=== PATIENT | male | born 1985 | race Hispanic/Latino ===

== ENCOUNTER 2017-09-24 14:22 | Inpatient (IN) | payer BC, OTHER ==
[~2017-09-24] VITALS: Ht 365.8 cm; Wt 216.4 kg
[~2017-09-24 14:22] MED LIST: ASPIRIN81 MG PO; FLAGYL250 MG PO; LEVAQUIN500 MG PO; LISINOPRIL10 MG PO; PANTOPRAZOLE SO40 MG PO; TYLENOL WITH C1 EACH PO; ZOFRAN ODT4 MG SL
[2017-09-24] MEDS ORDERED: SODIUM CHLORIDE 0.9% 1000ML 1,000 ML IV STA (15:20)
[2017-09-24] MEDS ORDERED: ENOXAPARIN SODIUM INJ 100 MG/ML SYR SC STA (15:20)
[2017-09-24] MEDS ORDERED: VANCOMYCIN 1GM/NS 250 ML 250 ML IV STA (15:20)
[2017-09-24] MEDS ORDERED: PANTOPRAZOLE 40 MG 10ML VIAL IV STA (15:20)
[2017-09-24] MEDS ORDERED: PIPER-TAZ 3.375 GM 50 ML IV STA (15:20)
[2017-09-24 15:30] LABS: BASOPHILS # (AUTO) 0.1 (0.0-0.1); BASOPHILS % 0.5 % (0.0-1.0); EOSINOPHILS # (AUTO) 0.3 (0.0-0.4); EOSINOPHILS % 2.8 % (0.0-6.0); HEMATOCRIT 46.7 % (38.2-49.6); HEMOGLOBIN 14.6 g/dL (14.0-18.0); LYMPHOCYTES # (AUTO) 2.3 (1.0-3.2); LYMPHOCYTES % 20.5 % (18.0-39.1); MEAN CORPUSCULAR HEMOGLOBIN 26.6 pg (28-32); MEAN CORPUSCULAR HGB CONC 31.3 g/dL (31-35); MEAN CORPUSCULAR VOLUME 85.2 fL (81-99); MONOCYTES # (AUTO) 1.1 (0.2-0.8); MONOCYTES % 9.8 % (4.4-11.3); NEUTROPHILS # (AUTO) 7.3 (2.1-6.9); NEUTROPHILS % 65.7 % (38.7-80.0); PLATELET COUNT 307 x10e3/uL (140-360); RED BLOOD COUNT 5.48 x10e6/uL (4.3-5.7); RED CELL DISTRIBUTION WIDTH 14.6 % (11.7-14.4)
[2017-09-24] MEDS ORDERED: ONDANSETRON HCL INJ 2 MG/ML VIAL IV PRN (15:30)
[2017-09-24] MEDS ORDERED: DEXTROSE 50% SYRINGE 50 ML IV PRN (15:30)
[2017-09-24] MEDS ORDERED: MORPHINE SULFATE 2 MG/ML SYR IV PRN (15:30)
[2017-09-24 15:34] LABS: INR 1.08; PROTHROMBIN TIME 13.2 seconds (11.9-14.5)
[2017-09-24 15:35] LABS: PARTIAL THROMBOPLASTIN TIME 27.6 seconds (23.8-35.5)
[2017-09-24 15:42] LABS: ALANINE AMINOTRANSFERASE 49 IU/L (0-55); ALBUMIN 3.4 g/dL (3.5-5.0); ALBUMIN/GLOBULIN RATIO 0.9 (0.8-2.0); ALKALINE PHOSPHATASE 64 IU/L (40-150); ANION GAP 15.1 mmol/L (8-16); BLOOD UREA NITROGEN 11 mg/dL (7-26); BUN/CREATININE RATIO 13 (6-25); CALCIUM 9.6 mg/dL (8.4-10.2); CARBON DIOXIDE 29 mmol/L (22-29); CHLORIDE 96 mmol/L (98-107); CREATINE KINASE 140 IU/L (30-200); CREATININE, SERUM 0.83 mg/dL (0.72-1.25); EST GLOMERULAR FILTRATION RATE > 60 ML/MIN (60-); GLUCOSE 90 mg/dL (74-118); LIPASE 24 U/L (8-78); MAGNESIUM 1.7 MG/DL (1.3-2.1); POTASSIUM 4.1 mmol/L (3.5-5.1); SODIUM 136 mmol/L (136-145)
[2017-09-24] MEDS ORDERED: PANTOPRAZOLE 40 MG 10ML VIAL ONE (15:56)
[2017-09-24] MEDS ORDERED: PIPER-TAZ 3.375 GM 50 ML IV SCH (16:00)
[2017-09-24] MEDS ORDERED: FAMOTIDINE 20 MG/2 ML VIAL IV SCH (16:00)
[2017-09-24 16:02] LABS: THYROID STIMULATING HORMONE 1.715 uIU/mL (0.350-4.940)
[2017-09-24] MEDS ORDERED: ENOXAPARIN SODIUM INJ 100 MG/ML SYR SC SCH (16:15)
--- NOTE | 2017-09-24 16:36 | Diagnostic Imaging Report ---
PROCEDURE: A single AP view of the chest. COMPARISON: None available. INDICATIONS: LEG SWELLING FINDINGS: Lines/tubes: None. Lungs: Limited by body habitus and low lung volumes. No definite focal consolidation. Pleura: There is no pleural effusion or pneumothorax. Heart and mediastinum: Enlarged cardiac silhouette, accentuated by low lung volumes. Mildly elevated right hemidiaphragm. Bones: No acute bony abnormality. IMPRESSION: Limited study. No definite focal consolidation. Enlarged cardiac silhouette, accentuated by low lung volumes. Dictated by: Max Stahl M.D. on 09/24/2017 at 16:35 Electronically approved by: Max Stahl M.D. on 09/24/2017 at 16:35
[2017-09-24] MEDS: INSULIN REGULAR, HUMAN 100 UNIT/1 ML 3ML VIAL SQ SCH ×2 (16:55→21:55)
--- OUTSIDE RECORDS SUMMARY | 2017-09-24 17:17 | XMS REPORT ---
Author Author [facility] Address Unknown Phone Unavailable Care Team Providers Care Cashier And Waiter/Waitress Name Role Phone ILEANA ROMANO Unavailable Unavailable Problems This patient has no known problems. Allergies, Adverse Reactions, Alerts This patient has no known allergies or adverse reactions. Medications This patient has no known medications. Results Test Description Test Time Test Comments Text Results Atomic Results Result Comments CHEST SINGLE (PORTABLE) [place] [address] Patient Name: LEWIS ACEVEDO MR #: [id number] : 1985 Age/Sex: 31/M Req #: [id number] Adm Physician: Ordered by: ILEANA ROMANO MD, MD Report #: [id number] Location: ER Room/Bed: Procedure: [id number] DX/CHEST SINGLE (PORTABLE) Exam Date: 09/24/17 Exam Time: 1542 REPORT STATUS: Signed PROCEDURE: A single AP view of the chest. COMPARISON: None available. INDICATIONS: LEG SWELLING FINDINGS: Lines/tubes: None. Lungs: Limited by body habitus and low lung volumes. No definite focal consolidation. Pleura: There is no pleural effusion or pneumothorax. Heart and mediastinum: Enlarged cardiac silhouette, accentuated by low lung volumes. Mildly elevated right hemidiaphragm. Bones: No acute bony abnormality. IMPRESSION: Limited study. No definite focal consolidation. Enlarged cardiac silhouette, accentuated by low lung volumes. Dictated by: Max Henriquez M.D. on 09/24/2017 at 16:35 Electronically approved by: Max Henriquez M.D. on 09/24/2017 at 16:35 Dictated By: MAX HENRIQUEZ MD [id number] Transcribed By: DENISHA on 09/24/17 1635 COPY TO: ILEANA ROMANO
[2017-09-24 17:33] LABS: BILIRUBIN,URINE NEGATIVE (NEGATIVE); CLARITY,URINE CLEAR (CLEAR); COLOR,URINE YELLOW (YELLOW); KETONES,URINE NEGATIVE (NEGATIVE); LEUKOCYTE ESTERASE ,URINE NEGATIVE (NEGATIVE); NITRITE,URINE NEGATIVE (NEGATIVE); PROTEIN,URINE DIPSTICK NEGATIVE (NEGATIVE); URINE UROBILINOGEN 0.2 mg/dL (0.2 - 1)
--- NOTE | 2017-09-24 21:48 | Cardiology Report ---
CUT DICTATION (LENGTH 01:07). DOPPLER SCAN OF THE LOWER EXTREMITY VEINS The lower extremity veins were interrogated using 2+ method. The study is suboptimal in quality with several areas not well visualized, including the distal right femoral vein and the left femoral vein as well as the distal portion of the small veins below the left knee. CONCLUSIONS 1. No definite deep venous thrombosis in the area is well visualized. 2. Technically, suboptimal with both distal femoral veins poorly visualized bilaterally and the left small veins in the popliteal area Job#: [id number] THEODORA
--- NOTE | 2017-09-24 21:54 | Cardiology Report ---
DATE OF STUDY: ECHOCARDIOGRAM M-MODE: Borderline dilated left atrium. Normal left ventricular wall thickness and contractility. Normal mitral and aortic valves. No pericardial effusion. SECTOR SCAN: Suboptimal study, poor image quality. Borderline dilated left atrium. Normal left ventricular contractility. Normal left ventricular wall thickness. No pericardial effusion. Suboptimal study. CARDIAC DOPPLER STUDY WITH COLOR: No significant valvular regurgitation or stenosis. CONCLUSIONS 1. Suboptimal study with very poor image quality. 2. Left ventricular ejection fraction is probably normal, around 60%. 3. Borderline dilated left atrium. Job#: [id number] THEODORA cc:DR ILEANA ROMANO
[2017-09-25] MEDS ORDERED: FAMOTIDINE 10MG/ML 20ML VIAL IV SCH (09:00)
[2017-09-25] MEDS ORDERED: ASPIRIN 81 MG ENTERIC COATED PO SCH (09:00)
[2017-09-25] MEDS ORDERED: VANCOMYCIN 1GM/NS 250 ML 250 ML IV SCH (16:00)
== END 2017-09-24 22:50 | disposition left against medical advice (07) | DRG 603 ==
LOC: ER 14:22 → EDBD 14:22 → ERHOLD 17:16 → MED/SURG3 22:01
PROVIDERS: ADMIT Internal Medicine; ATTEND Internal Medicine
DX: L03.116 Cellulitis of left lower limb (principal); Z72.0 Tobacco use
CPT/HCPCS: 36415; 71045; 80053; 81001; 82550; 82553; 83690; 83735; 83880; 84443; 84484; 85025; 85610; 85730; 87040; 87086; 93005; 93306; 93970; 99284; J1650; J2543; J3370; J7030

== ENCOUNTER 2018-03-10 19:14 | Inpatient (IN) | payer MEDICARE, OTHER ==
[~2018-03-10] VITALS: Ht 180.3 cm; Wt 217.3 kg
[2018-03-10] MEDS ORDERED: ALBUTEROL/IPRATROPIUM 3 ML NEB NEB ONE (20:15)
[2018-03-10] MEDS ORDERED: METHYLPREDNISOLONE SOD SUCC 125 MG/2ML VIAL IV ONE (20:15)
--- NOTE | 2018-03-10 20:57 | Diagnostic Imaging Report ---
EXAMINATION: CXR 1 [facility] INDICATION: \S\[id number] \S\2009 COMPARISON: Chest radiograph 01/25/[address] abdomen and pelvis 01/25/2016 FINDINGS: PA and lateral views TUBES and LINES: None. LUNGS: Low lung volumes. Bilateral interstitial edema. Bibasilar atelectasis. PLEURA: No pleural effusion or pneumothorax. HEART AND MEDIASTINUM: Moderate enlargement of the cardiac silhouette with obscuration of the upper mediastinum. BONES AND SOFT TISSUES: No acute osseous lesion. Soft tissues are unremarkable. UPPER ABDOMEN: No free air under the diaphragm. IMPRESSION: Moderate enlargement of the cardiac silhouette has significantly increased since prior exam and suggestive of cardiomegaly with superimposed pericardial effusion. Correlate with echocardiogram. Signed by: Dr. Neha Pastrana M.D. on 03/10/2018 8:53 PM
[2018-03-10] MEDS ORDERED: FUROSEMIDE40 MG PO (22:02)
[2018-03-10] MEDS ORDERED: LATUDA (22:02)
[2018-03-10] MEDS ORDERED: PROPRANOLOL HCL40 MG PO (22:02)
[2018-03-10] MEDS ORDERED: BUSPIRONE HCL5 MG PO (22:02)
[2018-03-10] MEDS ORDERED: FUROSEMIDE INJ 10 MG/ML 4 ML VIAL IV ONE (22:15)
[2018-03-10] MEDS ORDERED: PIPER-TAZ 3.375 GM 50 ML IV ONE (22:30)
[2018-03-10] MEDS: ALBUTEROL/IPRATROPIUM 3 ML NEB NEB SCH (23:55)
[2018-03-11] VITALS (33 sets, daily range): BP systolic 72–188; BP diastolic 36–117
[2018-03-11 01:15] LABS: CREATINE KINASE 41 IU/L (30-200)
[2018-03-11] MEDS: ALBUTEROL/IPRATROPIUM 3 ML NEB NEB SCH ×6 (02:50→23:02)
[2018-03-11] MEDS ORDERED: SODIUM CHLORIDE 0.9% 250ML 250 ML ONE (02:51)
[2018-03-11 04:59] LABS: BASOPHILS % 0.2 % (0.0-1.0); HEMATOCRIT 43.6 % (38.2-49.6); HEMOGLOBIN 12.5 g/dL (14.0-18.0); LYMPHOCYTES # (AUTO) 0.6 (1.0-3.2); LYMPHOCYTES % 5.6 % (18.0-39.1); MEAN CORPUSCULAR HEMOGLOBIN 25.1 pg (28-32); MEAN CORPUSCULAR HGB CONC 28.7 g/dL (31-35); MEAN CORPUSCULAR VOLUME 87.4 fL (81-99); MONOCYTES # (AUTO) 0.1 (0.2-0.8); MONOCYTES % 0.9 % (4.4-11.3); NEUTROPHILS # (AUTO) 10.3 (2.1-6.9); NEUTROPHILS % 92.4 % (38.7-80.0); PLATELET COUNT 347 x10e3/uL (140-360); RED BLOOD COUNT 4.99 x10e6/uL (4.3-5.7); RED CELL DISTRIBUTION WIDTH 16.2 % (11.7-14.4)
[2018-03-11] MEDS: METHYLPREDNISOLONE SOD SUCC 125 MG/2ML VIAL IV SCH ×3 (05:15→22:14)
[2018-03-11] MEDS: PIPER-TAZ 3.375 GM 50 ML IV SCH ×3 (05:15→22:14)
[2018-03-11 05:26] LABS: CREATINE KINASE MB 0.8 ng/mL (0-5.0)
[2018-03-11 06:36] LABS: ALANINE AMINOTRANSFERASE 49 IU/L (0-55); ALBUMIN 3.2 g/dL (3.5-5.0); ALBUMIN/GLOBULIN RATIO 0.8 (0.8-2.0); ALKALINE PHOSPHATASE 74 IU/L (40-150); ANION GAP 14.5 mmol/L (8-16); BLOOD UREA NITROGEN 13 mg/dL (7-26); BUN/CREATININE RATIO 15 (6-25); CALCIUM 8.9 mg/dL (8.4-10.2); CARBON DIOXIDE 34 mmol/L (22-29); CHLORIDE 98 mmol/L (98-107); CREATININE, SERUM 0.84 mg/dL (0.72-1.25); EST GLOMERULAR FILTRATION RATE > 60 ML/MIN (60-); GLUCOSE 114 mg/dL (74-118); POTASSIUM 4.5 mmol/L (3.5-5.1); SODIUM 142 mmol/L (136-145)
[2018-03-11 07:24] LABS: ANISOCYTOSIS SLIGHT; HYPOCHROMASIA SLIGHT; LYMPHOCYTES % (MANUAL) 4 % (19-48); MONOCYTES % (MANUAL) 2 % (3.4-9.0); NEUTROPHILS % (MANUAL) 93 % (40-74); PROMYELOCYTES % (MANUAL) 1 % (0-0); STOMATOCYTES SLIGHT
[2018-03-11 07:25] LABS: PLATELET ESTIMATE ADEQUATE; PLATELET MORPHOLOGY COMMENT NORMAL; RBC MORPHOLOGY COMMENT NORMAL
[2018-03-11 07:44] LABS: CHOL/HDL RATIO 2.4 (3.9-4.7)
--- NOTE | 2018-03-11 08:09 | History and Physical ---
PRIMARY CARE PHYSICIAN: None CHIEF COMPLAINT: Wheezing and shortness of breath. HISTORY OF PRESENT ILLNESS: This is a 32-year-old man with a history of super morbid obesity and recent pneumonia with acute respiratory failure requiring intubation at [facility] in October, now developing shortness of breath and wheezing for the past 2 weeks. He described the wheezing as a noise in the throat. The patient has had worsening symptoms. Therefore, he went to [facility] urgent care and transferred here for further care. Imaging suggested pericardial effusion on CT imaging. The patient was started on steroids, nebs and antibiotics, and admitted for further evaluation and management. Denies any chest pain. Denies any fever. Denies any recent infection. PAST MEDICAL HISTORY: Pneumonia, acute respiratory failure, ARDS, super morbid obesity, sigmoid colitis, diverticulitis, sepsis, hypertension, history of cigarette use. PAST SURGICAL HISTORY: None. ALLERGIES: PER ELECTRONIC MEDICAL RECORD. FAMILY HISTORY: Family history of diabetes. SOCIAL HISTORY: Patient denies any alcohol, illicits or cigarettes. He has a history of smoking. MEDICATIONS: Per electronic medical record. REVIEW OF SYSTEMS: Denies any dizziness, chest pain, fevers, chills, sweats, nausea, vomiting, diarrhea, headache, chest pain, blurred vision. PHYSICAL EXAMINATION VITAL SIGNS: Have been reviewed. GENERAL: A tired-appearing man resting in bed. HEENT: Anicteric. He has no oral lesions. He has a rash around the bilateral borders of the nasal bridge, which is erythematous and scaly. CARDIOVASCULAR: Normal S1 and S2. LUNGS: He has reduced breath sounds throughout. No wheezing is audible. ABDOMEN: Soft, nontender and nondistended. EXTREMITIES: No edema or calf tenderness. NEUROLOGICAL: Alert and oriented times 3. Moving all extremities. SKIN: Dry. PSYCHIATRIC: Flat affect. LABS: Reviewed. MEDICATIONS: Reviewed. ASSESSMENT: This is a 32-year-old man with: 1. Acute bronchitis. 2. Hypertension. 3. Possible edema of the airway. 4. Super morbid obesity. 5. Seborrheic dermatitis. 6. Pericardial effusion on imaging. 7. History of cigarette use. PLAN 1. Continue with steroids and antibiotics. 2. Follow up cultures. 3. Obtain 2-D echocardiogram to further evaluate possible pericardial effusion. 4. Start loratadine, antihistamine and Singulair at nighttime. 5. Continue neb treatments. 6. Restart home medications for blood pressure control. 7. Continue Lasix use. Currently, on Lasix 40 mg IV b.i.d. 8. Continue Lovenox and PPI. 9. Disposition. Follow up closely and re-evaluate. Job#: [id number] RI
[2018-03-11] MEDS: FUROSEMIDE INJ 10 MG/ML 4 ML VIAL IV SCH ×3 (08:27→20:50)
[2018-03-11] MEDS: LISINOPRIL 10 MG TAB PO SCH (08:28)
[2018-03-11] MEDS: LORATADINE 10 MG TAB PO SCH (08:28)
[2018-03-11] MEDS: PROPRANOLOL HCL 40 MG TAB PO SCH ×2 (08:28→17:00)
[2018-03-11] MEDS: BUSPIRONE HCL 5 MG TAB PO SCH ×2 (08:28→17:00)
[2018-03-11] MEDS ORDERED: HYDROCODONE/APAP 5MG-325MG TAB PO PRN (08:30)
[2018-03-11] MEDS ORDERED: LATUDA 80 MG SCH (09:00)
[2018-03-11] MEDS ORDERED: LATUDA 80 MG PO SCH (09:00)
[2018-03-11] MEDS ORDERED: PANTOPRAZOLE SOD 40 MG TABEC PO SCH (09:00)
[2018-03-11] MEDS: ONDANSETRON HCL 4 MG ORAL DISINTEGRATING TAB SL SCH ×2 (12:17→18:00)
[2018-03-11] MEDS ORDERED: CHLORASEPTIC SPRAY 177 ML BTL MM PRN (12:30)
[2018-03-11 14:17] LABS: CREATINE KINASE MB 1.1 ng/mL (0-5.0)
[2018-03-11] MEDS ORDERED: SUCCINYLCHOLINE CHLORIDE 20 MG/ML 10ML VIAL ONE (17:58)
[2018-03-11] MEDS ORDERED: VECURONIUM BROMIDE FOR INJ 20 MG VIAL ONE (17:58)
[2018-03-11] MEDS ORDERED: ETOMIDATE 2 MG/ML 10 ML INJ IV ONE (17:58)
[2018-03-11] MEDS ORDERED: PROPOFOL IV EMULSION 10MG/ML 100 ML IV PRN (18:00)
[2018-03-11 18:07] LABS: ABG PCO2 118 mmHg (41-51); ABG PO2 90 mmHg (80-105)
[2018-03-11 18:08] LABS: ABG HCO3 46 mmol/L (23-28)
[2018-03-11 18:11] LABS: ABG PH 7.26 (7.31-7.41)
[2018-03-11 18:12] LABS: ABG HCO3 41 mmol/L (23-28); ABG PCO2 92 mmHg (41-51); ABG PO2 80 mmHg (80-105)
--- NOTE | 2018-03-11 18:51 | Diagnostic Imaging Report ---
EXAMINATION: CHEST SINGLE (PORTABLE) INDICATION: \S\check intubation placement \S\[id number] \S\1800 COMPARISON: Chest radiograph 03/10/2018 FINDINGS: PA and lateral views TUBES and LINES: Interval intubation with endotracheal tube tip 4.5 cm above the alannah. LUNGS: Low lung volumes. Bilateral pulmonary edema, increased. Bibasilar atelectasis. PLEURA: No pleural effusion or pneumothorax. HEART AND MEDIASTINUM: Moderate enlargement of the cardiac silhouette with obscuration of the upper mediastinum. BONES AND SOFT TISSUES: No acute osseous lesion. Soft tissues are unremarkable. UPPER ABDOMEN: No free air under the diaphragm. IMPRESSION: 1. New endotracheal tube with tip in adequate position. 2. Worsening bilateral pulmonary edema. Signed by: Dr. Neha Pastrana M.D. on 03/11/2018 6:48 PM
[2018-03-11] MEDS: ENOXAPARIN SOD INJ 40 MG/0.4 ML SYR SC SCH (19:31)
[2018-03-11] MEDS: VANCOMYCIN 1GM/NS 250 ML 250 ML IV SCH ×2 (20:00→21:00)
[2018-03-11] MEDS: SODIUM CHLORIDE 0.9% IV SCH ×2 (20:30→21:00)
[2018-03-11] MEDS: POTASSIUM CHLORIDE IV SCH ×2 (20:30→21:00)
[2018-03-11 21:00] LABS: ABG PH 7.33 (7.31-7.41)
[2018-03-11] MEDS: MONTELUKAST SODIUM 10 MG TAB PO SCH (21:00)
[2018-03-11 21:01] LABS: ABG HCO3 42 mmol/L (23-28); ABG PCO2 79 mmHg (41-51); ABG PO2 67 mmHg (80-105)
[2018-03-11 21:19] LABS: BASOPHILS % 0.1 % (0.0-1.0); HEMATOCRIT 44.9 % (38.2-49.6); HEMOGLOBIN 12.6 g/dL (14.0-18.0); LYMPHOCYTES # (AUTO) 0.7 (1.0-3.2); LYMPHOCYTES % 4.4 % (18.0-39.1); MEAN CORPUSCULAR HEMOGLOBIN 24.9 pg (28-32); MEAN CORPUSCULAR HGB CONC 28.1 g/dL (31-35); MEAN CORPUSCULAR VOLUME 88.7 fL (81-99); MONOCYTES % 6.6 % (4.4-11.3); NEUTROPHILS % 88.1 % (38.7-80.0); PLATELET COUNT 356 x10e3/uL (140-360); RED BLOOD COUNT 5.06 x10e6/uL (4.3-5.7); RED CELL DISTRIBUTION WIDTH 16.2 % (11.7-14.4)
[2018-03-11 21:38] LABS: ALANINE AMINOTRANSFERASE 64 IU/L (0-55); ALBUMIN 3.2 g/dL (3.5-5.0); ALKALINE PHOSPHATASE 68 IU/L (40-150); ANION GAP 14.7 mmol/L (8-16); BILIRUBIN,DIRECT 0.2 mg/dL (0.0-0.5); BLOOD UREA NITROGEN 16 mg/dL (7-26); BUN/CREATININE RATIO 15 (6-25); CALCIUM 9.4 mg/dL (8.4-10.2); CARBON DIOXIDE 36 mmol/L (22-29); CHLORIDE 95 mmol/L (98-107); CREATININE, SERUM 1.05 mg/dL (0.72-1.25); EST GLOMERULAR FILTRATION RATE > 60 ML/MIN (60-); GLUCOSE 134 mg/dL (74-118); MAGNESIUM 1.8 MG/DL (1.3-2.1); POTASSIUM 4.7 mmol/L (3.5-5.1); SODIUM 141 mmol/L (136-145)
[2018-03-11] MEDS: MIDAZOLAM HCL 25 MG in SODIUM CHLORIDE 0.9% 50ML 45 ML IV PRN (22:00)
[2018-03-11] MEDS: [UNRECOGNIZED DRUG - OTHER] PO SCH (22:03)
[2018-03-11] MEDS: LATUDA 80 MG PO SCH (22:03)
--- NOTE | 2018-03-11 22:16 | Consultation ---
DATE OF CONSULTATION: March 11, 2018 HISTORY OF PRESENT ILLNESS: The patient is a 32-year-old male consulted after the patient required intubation and was started with ventilation. He was admitted due to the presence of wheezing, increasing shortness of breath, and probably some cough. The patient has history of previous intubation in October of this year, and he needed to be intubated for more than one month, according to the mother. He has history of bronchial asthma as a child. He was diagnosed with having paranoid schizophrenia. He has history of smoking one to one and a half pack a day for 7 years. No smoking since October of this year. When he was intubated in October, he had a sacral wound with improvement, but some part of the wound remained. Also, in October he had one episode of arresting with good recovery after CPR was given. By then, in October 2016 he had pneumonia. As reported, he needed to be intubated for 35 days, according to the mother. He has history of hypertension, sleep apnea. He has super morbid obesity. The mother also described a facial rash present for the last month. He has history of hypertension, diverticulitis. He had sepsis. No previous surgeries. PHYSICAL EXAMINATION GENERAL: The patient has been sedated with versed drip. He was given Diprivan but the blood pressure went down. VITAL SIGNS: He is afebrile. Pulse 111. Blood pressure 188/114. The current blood pressure is 105/60. Pulse 88. Oxygen saturation 93%. He is assist control of 20. Tidal volume 520. PEEP of 5. FIO2 of 100. HEENT: NG tube, oral intubation. There is acne on the face. NECK: Short and thick. LUNGS: There are crackles in both lungs. HEART: No heart murmurs. ABDOMEN: Prominent. EXTREMITIES: No pedal edema. The chest x-ray disclosed bilateral pneumonia. In the terms of the labs, the WBC 11.16. The rest of the chemistry and CBC were unremarkable. IMPRESSION 1. Acute hypoxemic respiratory failure. 2. Bilateral pneumonia, which is very clear and severe on the last chest x-ray done. 3. Hypertension. 4. Super morbid obesity. 5. Seborrheic dermatitis of the face. 6. History of smoking. RECOMMENDATIONS: To continue with the current ventilatory settings and perform ABGs. The patient was started with Zosyn 3.375 q.8 h. IV. Will give him vancomycin 1 gram q.12 h. Check trough level after the third dose. Also, we are recommending to start with normal saline with potassium chloride 15 mEq in 1000 of fluids at a rate of 70 mL per hour. The patient was started with Lovenox 40 a day subcutaneously. He is getting Protonix 40 mg IV daily. He is on versed drip. We are planning ABGs, CBC, Chem 7, magnesium and liver profile to be done in a short time, and for tomorrow we are planning to repeat chest x-ray, ABGs, CBC, Chem 7, magnesium and liver profile again. To check the patient and to get in contact with the family, to watch the film by myself and to decide about the appropriate treatment and to take decision about the ventilation. It took me about one hour altogether. Job#: [id number] GH MTDD
[2018-03-12] VITALS (80 sets, daily range): BP systolic 77–143; BP diastolic 34–92
[2018-03-12] MEDS: ONDANSETRON HCL 4 MG ORAL DISINTEGRATING TAB SL SCH ×4 (00:11→17:20)
[2018-03-12] MEDS: MIDAZOLAM HCL 25 MG in SODIUM CHLORIDE 0.9% 50ML 45 ML IV PRN ×4 (01:00→15:14)
[2018-03-12] MEDS: ALBUTEROL/IPRATROPIUM 3 ML NEB NEB SCH ×6 (02:30→22:40)
[2018-03-12 04:44] LABS: BASOPHILS % 0.1 % (0.0-1.0); HEMATOCRIT 41.8 % (38.2-49.6); HEMOGLOBIN 11.8 g/dL (14.0-18.0); LYMPHOCYTES # (AUTO) 0.7 (1.0-3.2); LYMPHOCYTES % 3.9 % (18.0-39.1); MEAN CORPUSCULAR HEMOGLOBIN 24.5 pg (28-32); MEAN CORPUSCULAR HGB CONC 28.2 g/dL (31-35); MEAN CORPUSCULAR VOLUME 86.7 fL (81-99); MONOCYTES # (AUTO) 0.9 (0.2-0.8); MONOCYTES % 5.4 % (4.4-11.3); NEUTROPHILS % 89.9 % (38.7-80.0); PLATELET COUNT 351 x10e3/uL (140-360); RED BLOOD COUNT 4.82 x10e6/uL (4.3-5.7); RED CELL DISTRIBUTION WIDTH 16.6 % (11.7-14.4)
[2018-03-12 05:03] LABS: ALBUMIN 3.1 g/dL (3.5-5.0); ANION GAP 16.8 mmol/L (8-16); BILIRUBIN,DIRECT 0.2 mg/dL (0.0-0.5); CALCIUM 9.2 mg/dL (8.4-10.2); CREATININE, SERUM 1.51 mg/dL (0.72-1.25); POTASSIUM 4.8 mmol/L (3.5-5.1)
[2018-03-12] MEDS: PIPER-TAZ 3.375 GM 50 ML IV SCH ×3 (05:54→23:29)
[2018-03-12] MEDS: METHYLPREDNISOLONE SOD SUCC 125 MG/2ML VIAL IV SCH ×3 (05:54→23:29)
[2018-03-12 06:53] LABS: ABG PH 7.39 (7.31-7.41)
[2018-03-12 06:54] LABS: ABG HCO3 40 mmol/L (23-28); ABG PCO2 66 mmHg (41-51); ABG PO2 78 mmHg (80-105)
[2018-03-12 07:00] LABS: LYMPHOCYTES % (MANUAL) 4 % (19-48); MONOCYTES % (MANUAL) 8 % (3.4-9.0); NEUTROPHILS % (MANUAL) 88 % (40-74); PLATELET ESTIMATE ADEQUATE; PLATELET MORPHOLOGY COMMENT NORMAL; RBC MORPHOLOGY COMMENT NORMAL
--- NOTE | 2018-03-12 08:18 | Progress Note ---
DATE: March 12, 2018 ADDENDUM: Critical care time: More than 35 minutes. Job#: [id number] EV
[2018-03-12] MEDS: LISINOPRIL 10 MG TAB PO SCH (09:00)
[2018-03-12] MEDS: [UNRECOGNIZED DRUG - OTHER] PO SCH (09:00)
[2018-03-12] MEDS: PROPRANOLOL HCL 40 MG TAB PO SCH ×2 (09:00→17:00)
[2018-03-12] MEDS: LATUDA 80 MG PO SCH (09:00)
[2018-03-12] MEDS: BUSPIRONE HCL 5 MG TAB PO SCH ×2 (09:00→17:00)
[2018-03-12] MEDS: LORATADINE 10 MG TAB PO SCH (09:00)
[2018-03-12] MEDS: VANCOMYCIN 1GM/NS 250 ML 250 ML IV SCH ×2 (09:02→20:00)
[2018-03-12] MEDS: PANTOPRAZOLE 40 MG 10ML VIAL IV SCH (09:02)
[2018-03-12] MEDS: FUROSEMIDE INJ 10 MG/ML 4 ML VIAL IV SCH (09:02)
[2018-03-12] MEDS: POTASSIUM CHLORIDE IV SCH ×2 (09:56→23:29)
[2018-03-12] MEDS: SODIUM CHLORIDE 0.9% IV SCH ×2 (09:56→23:29)
--- NOTE | 2018-03-12 10:24 | Diagnostic Imaging Report ---
EXAMINATION: CHEST SINGLE (PORTABLE) INDICATION: \S\Resp Failure \S\[id number] \S\0530 COMPARISON: Chest radiograph 03/11/2018 FINDINGS: Single portable AP view of the chest. The visualized bones and soft tissues, cardiac silhouette lungs, pleura appear unchanged. IMPRESSION: 1. Lines/tubes: * Endotracheal tube has been mildly retracted with tip now in the upper trachea. Recommend advancement of at least 2 cm. * Interval placement of NG/OG tube which appears to be below the diaphragm. Tip is difficult to visualize. 2. Unchanged low lung volumes, bilateral pulmonary edema, and bibasilar atelectasis. Signed by: Dr. Neha Pastrana M.D. on 03/12/2018 10:20 AM
--- NOTE | 2018-03-12 11:46 | Diagnostic Imaging Report ---
EXAMINATION: CHEST XRAY LINE PLACEMENT INDICATION: \S\check picc line placement \S\[id number] \S\1105 COMPARISON: Chest radiograph at 03/12/2018 FINDINGS: AP view TUBES and LINES: Interval placement of a right PICC. Tip is not well visualized but appears to overlying the mid SVC. Endotracheal tube with tip in the upper trachea, unchanged. Infradiaphragmatic NG/OG tube, unchanged. LUNGS: Low lung volumes. Bilateral pulmonary edema. Bibasilar atelectasis. PLEURA: No pleural effusion or pneumothorax. HEART AND MEDIASTINUM: The cardiomediastinal silhouette is unremarkable. BONES AND SOFT TISSUES: No acute osseous lesion. Soft tissues are unremarkable. UPPER ABDOMEN: No free air under the diaphragm. IMPRESSION: New right PICC. The tip appears to overlying the mid SVC. Consider repeat chest radiograph with better x-ray penetration. No pneumothorax. Signed by: Dr. Neha Pastrana M.D. on 03/12/2018 11:43 AM
--- NOTE | 2018-03-12 14:25 | Diagnostic Imaging Report ---
EXAM: Abdomen 1 View INDICATION: \S\confirm NGT placement \S\[id number] \S\1300 COMPARISON: CT abdomen and pelvis 01/25/2016 and chest radiograph 03/12/2018 FINDINGS: TUBES AND LINES: Distal NG/OG tube within the gastric body. Oral contrast within the stomach. No contrast extravasation. Mild to moderate of stool in the colon. No dilated loops of small bowel. No renal calculi. No abnormal soft tissue masses. No degenerative changes in the lumbar spine and pelvis. IMPRESSION: NG OG tube with tip within the gastric body. Signed by: Dr. Neha Pastrana M.D. on 03/12/2018 2:21 PM
[2018-03-12] MEDS: FENTANYL CITRATE INJ 2,000 MCG in SODIUM CHLORIDE 0.9% 250ML 210 ML IV PRN ×2 (14:27→21:00)
[2018-03-12 16:35] LABS: BASOPHILS % 0.1 % (0.0-1.0); HEMATOCRIT 40.6 % (38.2-49.6); HEMOGLOBIN 11.7 g/dL (14.0-18.0); LYMPHOCYTES # (AUTO) 0.7 (1.0-3.2); LYMPHOCYTES % 4.2 % (18.0-39.1); MEAN CORPUSCULAR HEMOGLOBIN 24.6 pg (28-32); MEAN CORPUSCULAR HGB CONC 28.8 g/dL (31-35); MEAN CORPUSCULAR VOLUME 85.3 fL (81-99); MONOCYTES # (AUTO) 1.1 (0.2-0.8); MONOCYTES % 6.7 % (4.4-11.3); NEUTROPHILS # (AUTO) 14.9 (2.1-6.9); NEUTROPHILS % 88.4 % (38.7-80.0); PLATELET COUNT 325 x10e3/uL (140-360); RED BLOOD COUNT 4.76 x10e6/uL (4.3-5.7); RED CELL DISTRIBUTION WIDTH 16.9 % (11.7-14.4)
[2018-03-12 16:52] LABS: ANION GAP 13.1 mmol/L (8-16); BLOOD UREA NITROGEN 31 mg/dL (7-26); BUN/CREATININE RATIO 27 (6-25); CALCIUM 9.2 mg/dL (8.4-10.2); CARBON DIOXIDE 34 mmol/L (22-29); CHLORIDE 99 mmol/L (98-107); CREATININE, SERUM 1.16 mg/dL (0.72-1.25); EST GLOMERULAR FILTRATION RATE > 60 ML/MIN (60-); GLUCOSE 118 mg/dL (74-118); POTASSIUM 4.1 mmol/L (3.5-5.1); SODIUM 142 mmol/L (136-145)
[2018-03-12] MEDS: ENOXAPARIN SOD INJ 40 MG/0.4 ML SYR SC SCH (17:25)
[2018-03-12] MEDS: DEXMEDETOMIDINE HCL 200 MCG in SODIUM CHLORIDE 0.9% 50ML 48 ML IV PRN ×2 (20:28→23:00)
[2018-03-12] MEDS: MONTELUKAST SODIUM 10 MG TAB PO SCH (20:43)
--- NOTE | 2018-03-12 22:15 | Progress Note ---
DATE: LUNG PROGRESS NOTE Patient is a 32-year-old man, who I saw him after being intubated and found to have a pneumonia and signs compatible with CHF. Today, he seems to be stable, probably slight improvement. A PICC line was placed and in the x-ray, it seems to be in the superior vena cava area. OBJECTIVE VITAL SIGNS: He has been afebrile. Pulse 81. Oxygen saturation 92%. Blood pressure 106/55. He is on assist control of 20, FiO2 of 100%, PEEP of 12, tidal volume 520. HEENT: NG tube, oral intubation. NECK: Short and thick. LUNGS: He has distant breath sounds. HEART: No murmurs. ABDOMEN: Very obese. EXTREMITIES: Pedal edema. LABS: In terms of the chest x-ray, there was 1 done in the senior information developer, which was looking better especially with the right lung comparison with the x-ray done yesterday. The one done after PICC line was placed, was looking similar to yesterday's films. The WBC 16.72, BUN 26, creatinine 1.51, sugar 130, albumin 3.1. Patient is currently on Versed 10 mg per hour. We are planning to continue with the vancomycin. He is on vancomycin 1 g q.12 and he is Zosyn 3.375 q.8. Besides that, he is on Versed drip. He is on normal saline with potassium. We are recommending Lasix to be given 40 q.24. To add fentanyl to the Versed for sedation and control of pain. To continue with the same ventilatory settings and we are requesting for tomorrow ABGs, chest x-ray, CBC, chemistry, and magnesium. Job#: [id number] CQ
[2018-03-13] VITALS (37 sets, daily range): BP systolic 105–152; BP diastolic 63–108
[2018-03-13] MEDS: DEXMEDETOMIDINE HCL 200 MCG in SODIUM CHLORIDE 0.9% 50ML 48 ML IV PRN ×2 (01:00→03:14)
[2018-03-13] MEDS: ALBUTEROL/IPRATROPIUM 3 ML NEB NEB SCH ×6 (02:45→22:57)
[2018-03-13] MEDS: FENTANYL CITRATE INJ 2,000 MCG in SODIUM CHLORIDE 0.9% 250ML 210 ML IV PRN (03:16)
--- NOTE | 2018-03-13 03:54 | Diagnostic Imaging Report ---
EXAM: CHEST SINGLE (PORTABLE), AP 1 view INDICATION: Possible pulled endotracheal tube COMPARISON: AP view of the chest March 12, 2018 FINDINGS: LINES/TUBES: The endotracheal tube has been pulled and is 9 cm above the alannah. The nasal/orogastric tube courses below the diaphragm out of field of view. Tip of right approach PICC not well-visualized on this exam. LUNGS: Likely bilateral pulmonary edema and bibasilar atelectasis. PLEURA: No effusions or pneumothorax. HEART AND MEDIASTINUM: Stable enlargement. BONES AND SOFT TISSUES: No acute findings. IMPRESSION: The endotracheal tube has been retracted and is 9 cm above the alannah. Signed by: Dr. Margy Mcqueen M.D. on 03/13/2018 3:51 AM
[2018-03-13 04:54] LABS: BASOPHILS % 0.1 % (0.0-1.0); HEMOGLOBIN 11.5 g/dL (14.0-18.0); LYMPHOCYTES # (AUTO) 0.5 (1.0-3.2); LYMPHOCYTES % 3.9 % (18.0-39.1); MEAN CORPUSCULAR HEMOGLOBIN 24.5 pg (28-32); MEAN CORPUSCULAR HGB CONC 28.8 g/dL (31-35); MEAN CORPUSCULAR VOLUME 85.3 fL (81-99); MONOCYTES # (AUTO) 0.6 (0.2-0.8); MONOCYTES % 4.6 % (4.4-11.3); NEUTROPHILS # (AUTO) 11.8 (2.1-6.9); NEUTROPHILS % 90.9 % (38.7-80.0); PLATELET COUNT 306 x10e3/uL (140-360); RED BLOOD COUNT 4.69 x10e6/uL (4.3-5.7); RED CELL DISTRIBUTION WIDTH 16.8 % (11.7-14.4)
[2018-03-13] MEDS: ONDANSETRON HCL 4 MG ORAL DISINTEGRATING TAB SL SCH ×4 (05:08→18:00)
[2018-03-13] MEDS: PIPER-TAZ 3.375 GM 50 ML IV SCH ×2 (05:08→14:29)
[2018-03-13] MEDS: METHYLPREDNISOLONE SOD SUCC 125 MG/2ML VIAL IV SCH ×3 (05:08→20:26)
[2018-03-13 05:40] LABS: BLOOD UREA NITROGEN 30 mg/dL (7-26); BUN/CREATININE RATIO 35 (6-25); CALCIUM 8.3 mg/dL (8.4-10.2); CARBON DIOXIDE 30 mmol/L (22-29); CHLORIDE 103 mmol/L (98-107); CREATININE, SERUM 0.85 mg/dL (0.72-1.25); EST GLOMERULAR FILTRATION RATE > 60 ML/MIN (60-); GLUCOSE 121 mg/dL (74-118); MAGNESIUM 1.8 MG/DL (1.3-2.1); SODIUM 143 mmol/L (136-145)
[2018-03-13 07:53] LABS: LYMPHOCYTES % (MANUAL) 7 % (19-48); MONOCYTES % (MANUAL) 7 % (3.4-9.0); NEUTROPHILS % (MANUAL) 86 % (40-74); PLATELET ESTIMATE ADEQUATE; PLATELET MORPHOLOGY COMMENT NORMAL; RBC MORPHOLOGY COMMENT NORMAL
[2018-03-13] MEDS: FUROSEMIDE INJ 10 MG/ML 4 ML VIAL IV SCH (08:42)
[2018-03-13] MEDS: PROPRANOLOL HCL 40 MG TAB PO SCH ×2 (08:42→18:36)
[2018-03-13] MEDS: LORATADINE 10 MG TAB PO SCH (08:42)
[2018-03-13] MEDS: BUSPIRONE HCL 5 MG TAB PO SCH ×2 (08:42→18:35)
[2018-03-13] MEDS: PANTOPRAZOLE 40 MG 10ML VIAL IV SCH (08:42)
[2018-03-13] MEDS: LATUDA 80 MG PO SCH (08:42)
[2018-03-13] MEDS: [UNRECOGNIZED DRUG - OTHER] PO SCH (08:42)
[2018-03-13] MEDS: LISINOPRIL 10 MG TAB PO SCH (08:43)
[2018-03-13] MEDS: VANCOMYCIN 1GM/NS 250 ML 250 ML IV SCH ×2 (09:30→20:24)
[2018-03-13 09:33] LABS: ABG PCO2 62 mmHg (41-51); ABG PH 7.38 (7.31-7.41); ABG PO2 52 mmHg (80-105)
[2018-03-13 09:34] LABS: ABG HCO3 37 mmol/L (23-28)
--- NOTE | 2018-03-13 10:41 | Diagnostic Imaging Report ---
EXAM: CHEST SINGLE (PORTABLE), AP 1 view INDICATION: Endotracheal tube adjustment COMPARISON: Chest radiograph 03/13/2018 1:35 AM FINDINGS: LINES/TUBES: The endotracheal tube has been advanced with tip now 4.9 cm above the alannah in the upper trachea. The nasal/orogastric tube courses below the diaphragm out of field of view. Tip of right approach PICC not well-visualized on this exam. LUNGS: Low lung volumes. Likely bilateral pulmonary edema and bibasilar atelectasis, unchanged. PLEURA: No effusions or pneumothorax. HEART AND MEDIASTINUM: Stable enlargement. BONES AND SOFT TISSUES: No acute findings. IMPRESSION: The endotracheal tube has been advanced, tip now 4.9 cm above the alannah. Persistent bilateral pulmonary edema. Signed by: Dr. Neha Pastrana M.D. on 03/13/2018 10:37 AM
[2018-03-13] MEDS ORDERED: ZIPRASIDONE 20 MG VIAL IM ONE (11:03)
[2018-03-13] MEDS ORDERED: LORAZEPAM INJ 2 MG/ML VIAL ONE ×2 (11:03→13:01)
[2018-03-13] MEDS: ZIPRASIDONE 20 MG VIAL IM PRN ×2 (11:05→17:45)
[2018-03-13] MEDS: LORAZEPAM INJ 2 MG/ML VIAL IV SCH ×3 (11:05→22:00)
--- NOTE | 2018-03-13 12:45 | Progress Note ---
DATE: PULMONARY PROGRESS NOTE SUBJECTIVE: Patient is a 32-year-old male who when I saw him was doing fine while ventilated. Actually he was on a CPAP, and the weaning parameters that were done disclosed a NIF of minus 30 and RSBI of 86. The oxygen saturation was 100%. So, we decided to extubate the patient, and the patient after being extubated became very agitated and combative and talking about leaving AMA. So, we needed to give him Ativan 2 mg IV and Geodon 20 IM, and this kept him more cooperative. Patient seems to improve. The chest x-ray disclosed significant improvement of the lungs. OBJECTIVE VITAL SIGNS: Pulse 61, oxygen saturation 96, this after extubation, blood pressure 105/68, afebrile. He was on BiPAP of 20/6, FIO2 of 100%, and respiratory rate of 20. HEENT: NG tube. NECK: Thick and short. LUNGS: Some crackles. HEART: No heart murmurs. ABDOMEN: Prominent. EXTREMITIES: Minimal pedal edema. In terms of the lab: WBC 12.96, rest of the CBC unremarkable. The potassium was 5, the BUN 30, the rest of the chemistry besides glucose of 121 was unremarkable. IMPRESSION 1. Acute respiratory failure. 2. Bilateral pneumonia. 3. Congestive heart failure. 4. Most likely morbid obesity. 5. History of smoking. RECOMMENDATION: To continue with the same settings of BiPAP. Will repeat the ABGs in 1 hour. The last one before the extubation disclosed pH of 7.38, pCO2 of 62 and pO2 of 52. We are planning to give him also Ativan 2 mg q.6 h., and Dagoberto was first given 20, will continue with 10 mg q.6 p.r.n. Will give him clear liquids, and in terms of the rest of the medication that he is getting including antibiotics and Lasix, will continue with that the same way. ANI CENTENO MD Job#: [id number] EV MTDD
[2018-03-13] MEDS: SODIUM CHLORIDE 0.9% 1000ML 1,000 ML IV SCH (13:00)
[2018-03-13 13:12] LABS: ABG HCO3 36 mmol/L (23-28); ABG PCO2 63 mmHg (41-51); ABG PH 7.36 (7.31-7.41); ABG PO2 70 mmHg (80-105)
[2018-03-13] MEDS ORDERED: LORAZEPAM INJ 2 MG/ML VIAL IV ONE (13:30)
--- NOTE | 2018-03-13 15:12 | Progress Note ---
DATE: March 13, 2018 TIME: 12:30 p.m. SUBJECTIVE: Overnight, the patient extubated this a.m. and is currently on BiPAP. Continues with agitation episodes. REVIEW OF SYSTEMS: Patient does verbalize agitation. However, denies shortness of breath, chest pain, dizziness, fever, chills, sweats, nausea, vomiting, diarrhea. Denies headache or blurry vision. OBJECTIVE VITAL SIGNS: T 98.1, P 56, respiratory rate 20, BP 136/87, SpO2 96%. On BiPAP, blood gas was reviewed. GENERAL: This is an obese, agitated, young male resting supine in bed with head of bed elevated approximately 35 degrees. HEENT: Normocephalic. Erythematous and scaly exudate noted of bilateral borders of nasal bridge. BiPAP mask in place. CV: S1 and S2 distant without extra cardiac sounds appreciated. Sinus aakash noted on telemetry/bedside monitor. LUNGS: Reduced breath sounds throughout with scattered crackles and expiratory wheezes. The patient unable to produce productive cough. ABDOMEN: Soft, protuberant and nontender. EXTREMITIES: Without edema or calf tenderness. NEURO: The patient is A and O times 2. Moves all extremities. SKIN: Dry. PSYCHIATRIC: The patient is agitated with labile effect. Significant difficulty redirecting during conversation. Poor recall. LABS: WBC this a.m. is 12.96, H and H is 11.5 and 40 respectively. Platelet count is 306,000. Sodium 143, potassium 5, chloride 103, CO2 30, gap 15, BUN is 30, creatinine 0.85, glucose 121. Vanc trough therapeutic at 9.1. MEDICATIONS 1. DuoNeb 3 mL q.4 h. nebulizer. 2. IV q.12 h. vanc. 3. Lasix 40 mg IV daily. 4. Protonix 40 mg IV daily. 5. Home med of Latuda. 6. Loratadine 10 mg p.o. daily. 7. Buspar 5 mg p.o. b.i.d. 8. Zosyn q.8 h. IV. 9. Solu-Medrol 60 mg q.8 h. 10. IV p.r.n. sedation. 11. Singulair 10 mg p.o. at bedtime. 12. Lovenox 40 mg subcutaneous daily at 1700. 13. [place] 5 mg q.4 h. p.r.n. 14. NS at 60 mL an hour. 15. Geodon p.r.n. 16. Ativan 2 mg q.8 h. IV scheduled. 17. Chloraseptic q.4 h. p.r.n. 18. Ambien 10 mg p.r.n. at night. 19. Saline flush p.r.n. as needed. ASSESSMENT AND PLAN: This is a 32-year-old man with: 1. Acute bronchitis: Continue steroids and antibiotics. 2. Hypertension, controlled. 3. Possible edema of the airway: The patient was extubated this a.m. BiPAP trial piloted by pulmonology services. 4. Super morbid obesity: Continue neb treatments, home medications and diuresis. 5. Seborrheic dermatitis: Currently, with BiPAP on face. Treat when available. 6. Pericardial effusion per imaging: Lasix. 7. History of cigarette use. 8. Prophylaxis: Lovenox and proton pump inhibitor. 9. Disposition: Continue BiPAP trial. Obtain psych consult as discussion with RN, mother and grandmother at bedside. Family reports the patient with increasing agitation at home prior to this hospitalization. Correlating with RN discussion, increased agitation and aggression of short staff following extubation and inability to provide adequate sedation during ventilation. Continue treatment as above. DICTATED BY LUPE JUNIOR NP Job#: [id number] JOSE
[2018-03-13] MEDS: ENOXAPARIN SOD INJ 40 MG/0.4 ML SYR SC SCH (18:36)
[2018-03-13] MEDS ORDERED: FUROSEMIDE INJ 10 MG/ML 4 ML VIAL IV ONE (20:00)
[2018-03-13] MEDS: MONTELUKAST SODIUM 10 MG TAB PO SCH (20:24)
[2018-03-14] MEDS: ZIPRASIDONE 20 MG VIAL IM PRN ×3 (00:20→19:50)
[2018-03-14] MEDS: ZOLPIDEM TARTRATE 10 MG TAB PO PRN ×2 (00:20→21:14)
[2018-03-14] MEDS: SODIUM CHLORIDE FLUSH 10 ML SYR INJ PRN (00:20)
[2018-03-14] MEDS: ONDANSETRON HCL 4 MG ORAL DISINTEGRATING TAB SL SCH ×5 (00:20→23:22)
[2018-03-14] MEDS: PIPER-TAZ 3.375 GM 50 ML IV SCH ×4 (00:20→21:54)
[2018-03-14] MEDS: ALBUTEROL/IPRATROPIUM 3 ML NEB NEB SCH ×6 (03:00→23:40)
[2018-03-14 03:03] VITALS: BP 107/62
[2018-03-14 04:54] LABS: BASOPHILS % 0.1 % (0.0-1.0); HEMATOCRIT 40.7 % (38.2-49.6); HEMOGLOBIN 11.8 g/dL (14.0-18.0); LYMPHOCYTES # (AUTO) 0.7 (1.0-3.2); LYMPHOCYTES % 5.3 % (18.0-39.1); MEAN CORPUSCULAR HEMOGLOBIN 24.6 pg (28-32); MEAN CORPUSCULAR VOLUME 84.8 fL (81-99); MONOCYTES # (AUTO) 1.9 (0.2-0.8); MONOCYTES % 13.8 % (4.4-11.3); NEUTROPHILS # (AUTO) 10.8 (2.1-6.9); NEUTROPHILS % 80.1 % (38.7-80.0); PLATELET COUNT 319 x10e3/uL (140-360); RED CELL DISTRIBUTION WIDTH 16.5 % (11.7-14.4)
[2018-03-14 05:22] LABS: ALANINE AMINOTRANSFERASE 35 IU/L (0-55); ALBUMIN 2.3 g/dL (3.5-5.0); ALBUMIN/GLOBULIN RATIO 0.9 (0.8-2.0); ALKALINE PHOSPHATASE 49 IU/L (40-150); ANION GAP 10.5 mmol/L (8-16); BLOOD UREA NITROGEN 23 mg/dL (7-26); BUN/CREATININE RATIO 32 (6-25); CALCIUM 7.3 mg/dL (8.4-10.2); CARBON DIOXIDE 32 mmol/L (22-29); CHLORIDE 103 mmol/L (98-107); CREATININE, SERUM 0.72 mg/dL (0.72-1.25); EST GLOMERULAR FILTRATION RATE > 60 ML/MIN (60-); GLUCOSE 95 mg/dL (74-118); SODIUM 142 mmol/L (136-145)
[2018-03-14 05:24] LABS: POTASSIUM 3.5 mmol/L (3.5-5.1)
[2018-03-14] MEDS: METHYLPREDNISOLONE SOD SUCC 125 MG/2ML VIAL IV SCH ×3 (06:03→21:54)
[2018-03-14] MEDS ORDERED: PROMETHAZINE 12.5MG/ NACL 0.9% 12.5 MG/50 ML BAG IV PRN (07:30)
--- NOTE | 2018-03-14 08:31 | Diagnostic Imaging Report ---
EXAMINATION: CHEST SINGLE (PORTABLE) INDICATION: \S\post extubation \S\[id number] \S\0545 COMPARISON: Chest radiograph 9 02/10/2018 FINDINGS: AP view TUBES and LINES: The endotracheal and NG/NG tube have been removed. Right PICC. The tip appears to overlying the high SVC. LUNGS: Lungs are well inflated. Bilateral pulmonary edema, mildly decreased. Bibasilar atelectasis, right greater than left, unchanged. PLEURA: Possible trace left pleural effusion. No pneumothorax. HEART AND MEDIASTINUM: Moderate enlargement of the cardiac silhouette remains stable. BONES AND SOFT TISSUES: No acute osseous lesion. Soft tissues are unremarkable. UPPER ABDOMEN: No free air under the diaphragm. IMPRESSION: Interval extubation. Mildly improved pulmonary edema. Stable bibasilar atelectasis, right greater than left. Signed by: Dr. Neha Pastrana M.D. on 03/14/2018 8:28 AM
[2018-03-14] MEDS: VANCOMYCIN 1GM/NS 250 ML 250 ML IV SCH ×3 (08:45→20:06)
[2018-03-14 08:47] LABS: ANISOCYTOSIS SLIG; HOWELL-JOLLY BODIES FEW; HYPOCHROMASIA SLIGHT; LYMPHOCYTES % (MANUAL) 3 % (19-48); MONOCYTES % (MANUAL) 11 % (3.4-9.0); NEUTROPHILS % (MANUAL) 86 % (40-74); POIKILOCYTOSIS SLIG
[2018-03-14 08:48] LABS: PLATELET ESTIMATE ADEQUATE; PLATELET MORPHOLOGY COMMENT NORMAL; RBC MORPHOLOGY COMMENT NORMAL
[2018-03-14] MEDS: FUROSEMIDE INJ 10 MG/ML 4 ML VIAL IV SCH (09:26)
[2018-03-14] MEDS: SODIUM CHLORIDE 0.9% 1000ML 1,000 ML IV SCH ×2 (09:26→20:50)
[2018-03-14] MEDS: LORATADINE 10 MG TAB PO SCH (09:27)
[2018-03-14] MEDS: LATUDA 80 MG PO SCH (09:27)
[2018-03-14] MEDS: BUSPIRONE HCL 5 MG TAB PO SCH ×2 (09:27→17:37)
[2018-03-14] MEDS: [UNRECOGNIZED DRUG - OTHER] PO SCH (09:27)
[2018-03-14] MEDS: LISINOPRIL 10 MG TAB PO SCH (09:27)
[2018-03-14] MEDS: PANTOPRAZOLE 40 MG 10ML VIAL IV SCH (09:27)
[2018-03-14] MEDS: PROPRANOLOL HCL 40 MG TAB PO SCH ×2 (09:28→17:37)
[2018-03-14 09:43] LABS: ABG HCO3 39 mmol/L (23-28); ABG PCO2 68 mmHg (41-51); ABG PH 7.37 (7.31-7.41); ABG PO2 66 mmHg (80-105)
[2018-03-14 11:52] VITALS: BP 153/81
[2018-03-14] MEDS: LORAZEPAM INJ 2 MG/ML VIAL IV SCH (11:56)
--- NOTE | 2018-03-14 13:00 | Progress Note ---
DATE: March 14, 2018 PULMONARY PROGRESS NOTE SUBJECTIVE: Reporting the progress note of the lung consultation. Patient has had episodes of vomiting. He has been given oral feedings, especially by his mother, and he has been also off and on agitated and combative. Currently he is sleeping and seems to be fine, very relaxed. OBJECTIVE VITAL SIGNS: In terms of vitals, blood pressure 153/81, pulse 79, oxygen saturation 96, afebrile. He is on BiPAP of 12/6. Respiratory rate 14. FIO2 60%. HEENT: He is atraumatic. NECK: Thick and short. LUNGS: Some rhonchi. HEART: No murmurs. ABDOMEN: Prominent. EXTREMITIES: No pedal edema. LAB: Potassium 3.5. Albumin 2.3. WBC 13.43. Rest of the chemistry and CBC unremarkable. CHEST X-RAY: Is much better, and the lungs seem to be almost normal. IMPRESSION 1. Acute respiratory failure. 2. Bilateral pneumonia. 3. Congestive heart failure. 4. Morbid obesity. 5. Hypertension. 6. History of smoking. 7. Schizophrenia. 8. Episodes of agitation and combativeness. 9. The patient has also currently and recently worse vomiting. RECOMMENDATION: To continue with the current BiPAP setting. To give him Zofran 2-4 mg IV p.r.n. for the vomiting. To give him Geodon 40 mg a day in 4 doses as well as Ativan 1 or 2 mg every 3 or 4 hours p.r.n. in order to control the agitation and combativeness. I agree with the current BiPAP settings, and I agree also with the different medications that the patient is being given. Job#: [id number] EV CHRISTINA
[2018-03-14 16:23] VITALS: BP 132/69
[2018-03-14 16:50] VITALS: BP 134/87
[2018-03-14] MEDS: ENOXAPARIN SOD INJ 40 MG/0.4 ML SYR SC SCH (17:37)
[2018-03-14 20:00] VITALS: BP 130/73
[2018-03-14 21:00] VITALS: BP 130/73
[2018-03-14] MEDS: MONTELUKAST SODIUM 10 MG TAB PO SCH (21:14)
[2018-03-15] VITALS (9 sets, daily range): BP systolic 110–133; BP diastolic 64–81
[2018-03-15] MEDS: LORAZEPAM INJ 2 MG/ML VIAL IV SCH ×2 (01:07→09:13)
[2018-03-15] MEDS: ALBUTEROL/IPRATROPIUM 3 ML NEB NEB SCH ×6 (03:00→22:55)
[2018-03-15] MEDS: ZIPRASIDONE 20 MG VIAL IM PRN ×2 (03:20→14:16)
[2018-03-15 04:37] LABS: BASOPHILS % 0.1 % (0.0-1.0); HEMATOCRIT 43.1 % (38.2-49.6); HEMOGLOBIN 12.3 g/dL (14.0-18.0); LYMPHOCYTES # (AUTO) 0.5 (1.0-3.2); LYMPHOCYTES % 5.3 % (18.0-39.1); MEAN CORPUSCULAR HEMOGLOBIN 24.4 pg (28-32); MEAN CORPUSCULAR HGB CONC 28.5 g/dL (31-35); MEAN CORPUSCULAR VOLUME 85.3 fL (81-99); MONOCYTES % 9.4 % (4.4-11.3); NEUTROPHILS # (AUTO) 8.6 (2.1-6.9); NEUTROPHILS % 84.8 % (38.7-80.0); PLATELET COUNT 293 x10e3/uL (140-360); RED BLOOD COUNT 5.05 x10e6/uL (4.3-5.7); RED CELL DISTRIBUTION WIDTH 16.4 % (11.7-14.4)
[2018-03-15 04:57] LABS: ANION GAP 11.4 mmol/L (8-16); BLOOD UREA NITROGEN 18 mg/dL (7-26); BUN/CREATININE RATIO 22 (6-25); CARBON DIOXIDE 36 mmol/L (22-29); CHLORIDE 98 mmol/L (98-107); CREATININE, SERUM 0.81 mg/dL (0.72-1.25); EST GLOMERULAR FILTRATION RATE > 60 ML/MIN (60-); GLUCOSE 118 mg/dL (74-118); SODIUM 141 mmol/L (136-145)
[2018-03-15 05:08] LABS: CALCIUM 8.4 mg/dL (8.4-10.2); POTASSIUM 4.4 mmol/L (3.5-5.1)
[2018-03-15] MEDS: ONDANSETRON HCL 4 MG ORAL DISINTEGRATING TAB SL SCH ×3 (06:00→17:03)
[2018-03-15] MEDS: METHYLPREDNISOLONE SOD SUCC 125 MG/2ML VIAL IV SCH ×3 (06:21→21:12)
[2018-03-15] MEDS: PIPER-TAZ 3.375 GM 50 ML IV SCH ×3 (06:21→21:16)
[2018-03-15 06:42] LABS: ABG PCO2 92 mmHg (41-51); ABG PH 7.27 (7.31-7.41)
[2018-03-15 06:43] LABS: ABG HCO3 42 mmol/L (23-28); ABG PO2 95 mmHg (80-105)
[2018-03-15 07:08] LABS: LYMPHOCYTES % (MANUAL) 3 % (19-48); MONOCYTES % (MANUAL) 8 % (3.4-9.0); NEUTROPHILS % (MANUAL) 88 % (40-74); RBC MORPHOLOGY COMMENT NORMAL
[2018-03-15 07:09] LABS: ANISOCYTOSIS SLIGHT; HYPOCHROMASIA SLIGHT; PLATELET ESTIMATE ADEQUATE; PLATELET MORPHOLOGY COMMENT NORMAL; POIKILOCYTOSIS SLIGHT
[2018-03-15] MEDS: VANCOMYCIN 1GM/NS 250 ML 250 ML IV SCH ×2 (07:52→21:12)
[2018-03-15] MEDS: FUROSEMIDE INJ 10 MG/ML 4 ML VIAL IV SCH (09:13)
[2018-03-15] MEDS: PANTOPRAZOLE 40 MG 10ML VIAL IV SCH (09:13)
[2018-03-15] MEDS ORDERED: ONDANSETRON HCL INJ 2 MG/ML VIAL IV PRN (09:15)
[2018-03-15] MEDS: BUSPIRONE HCL 5 MG TAB PO SCH ×2 (10:12→17:23)
[2018-03-15] MEDS: LATUDA 80 MG PO SCH (10:12)
[2018-03-15] MEDS: LORATADINE 10 MG TAB PO SCH (10:12)
[2018-03-15] MEDS: [UNRECOGNIZED DRUG - OTHER] PO SCH (10:12)
[2018-03-15] MEDS: PROPRANOLOL HCL 40 MG TAB PO SCH ×2 (10:14→17:24)
[2018-03-15] MEDS: LISINOPRIL 10 MG TAB PO SCH (10:14)
[2018-03-15] MEDS ORDERED: ACETAZOLAMIDE SODIUM 500 MG/VIAL IV NR (12:00)
--- NOTE | 2018-03-15 16:56 | Consultation ---
DATE OF CONSULTATION: PSYCHIATRIC CONSULTATION REASON FOR CONSULTATION: For treatment and evaluation of the patient's psychosis and agitation. HISTORY OF PRESENT ILLNESS: The patient is a 32-year-old, morbidly obese, male who was admitted to inpatient hospital at [facility] for multiple medical problems. Psychiatric consult is called to evaluate the patient's psychosis and agitation during the inpatient stay. Upon evaluation today, the patient was found to be lying on his bed with his mother at his bedside. The patient stated he is feeling better. He denies feeling depressed or anxious. He denies feeling hopeless or helpless. He claims that he is sleeping and eating well. He denies any hallucinations. He denies any suicidal ideation at this time. As per his mother, the patient has a history of schizophrenia. He has been intermittently anxious and sometimes agitated. She wants the psychotropic medications to be increased. She claims the patient is not suicidal and has not been hallucinating. As per the nursing staff, the patient has been intermittently agitated and hard to redirect. He is threatening to leave AMA, but he cannot walk and has been receiving p.r.n. medications. PAST PSYCHIATRIC HISTORY: The patient has been treated and diagnosed with schizophrenia in the past. He has attempted suicide at least once in the past. He does not drink alcohol and does not abuse any recreational drugs. FAMILY HISTORY: The patient's paternal uncle suffered from a psychiatric illness. SOCIAL HISTORY: The patient lives with his mother and father. CURRENT LABS: WBC 10.16, hemoglobin 12.3, hematocrit 43.1, platelets 293. Sodium 141, potassium 4.4, chloride 98, carbon dioxide 36, BUN 11.4, creatinine 0.81. AST 13, ALT 35, alkaline phosphatase 49. CURRENT MEDICINES 1. Vancomycin. 2. BuSpar 5 mg p.o. b.i.d. 3. Lovenox. 4. Latuda 80 mg daily. 5. P.R.N. [place]. 6. Lisinopril. 7. Claritin. 8. Ativan 1 mg IV q.6 h. p.r.n. for agitation. 9. Singulair. 10. Protonix. 11. Geodon 10 mg IM q.6 h. p.r.n. for agitation. MENTAL STATUS EXAMINATION: The patient is a morbidly obese, young, male who is currently lying on his bed. He is calm and cooperative. His mood is "fine" with blunted affect. He denies any suicidal or homicidal ideation at present. He denies any abnormal perception at present. No delusions are elicited. His thought process is goal directed. His insight and judgment are limited. DIAGNOSIS: AXIS I: Schizoaffective disorder, bipolar type. PLAN 1. Continue Latuda 80 mg p.o. daily since the patient has done well on it in the past. 2. Continue Ativan 1 mg IV q.6 h. p.r.n. for agitation. 3. Continue Geodon 10 mg IM q.6 h. p.r.n. for agitation. 4. Add Depakote 250 mg 3 times a day. 5. Monitor for agitation. Thank you very much for this consult. Job#: [id number]
[2018-03-15] MEDS: ENOXAPARIN SOD INJ 40 MG/0.4 ML SYR SC SCH (17:24)
--- NOTE | 2018-03-15 18:52 | Progress Note ---
DATE: March 14, 2018 TIME OF SERVICE: 7:05 a.m. SUBJECTIVE: Overnight the patient was extubated. REVIEW OF SYSTEMS: Unobtainable. OBJECTIVE VITAL SIGNS: Reviewed. GENERAL APPEARANCE: A tired-appearing man resting in bed. HEENT: Anicteric. CARDIOVASCULAR: Normal S1/S2. LUNGS: Moderate breath sounds. ABDOMEN: Soft, nontender, nondistended. EXTREMITIES: No edema or calf tenderness. NEUROLOGICALLY: Alert and appropriate. SKIN: Dry. PSYCHIATRIC: Flat affect. LABS: Reviewed. MEDICATIONS: Reviewed. ASSESSMENT: A 32-year-old man. 1. Acute respiratory failure. 2. Acute bronchitis. 3. Hypertension. 4. Super morbid obesity. 5. Seborrheic dermatitis. 6. Pericardial effusion. 7. Cigarette use. 8. Sleep apnea. 9. CO2 retention. PLAN 1. Continue supportive care. 2. Continue antibiotics. 3. Echocardiogram shows mild effusion. 4. Treat nausea. Critical care time more than 35 minutes. Job#: [id number]
--- NOTE | 2018-03-15 19:01 | Progress Note ---
DATE: March 15, 2018 TIME OF SERVICE: 6:50 a.m. SUBJECTIVE: Overnight the patient wants to go home. REVIEW OF SYSTEMS: Denies any dizziness or chest pain. Denies any fever or chills, sweats, nausea, vomiting, diarrhea, headache, back pain. OBJECTIVE VITAL SIGNS: Reviewed. GENERAL APPEARANCE: A tired-appearing man resting in bed. HEENT: Anicteric. CARDIOVASCULAR: Normal S1/S2. LUNGS: Reduced breaths sounds throughout. ABDOMEN: Soft, nontender. EXTREMITIES: No edema. SKIN: Dry. PSYCHIATRIC: Flat affect. LABS: Reviewed. MEDICATIONS: Reviewed. ASSESSMENT: A 32-year-old man. 1. Acute respiratory failure. 2. CO2 retention. 3. Likely sleep apnea. 4. Super morbid obesity. 5. Seborrheic dermatitis. 6. Possible edema of the airway. 7. Pericardial effusion. 8. History of cigarette use. 9. Psychosis. PLAN 1. Continue current regimen with steroids, antibiotics, nebs, antitussive medications, Singulair. 2. Encouraged the patient to remain in the hospital. 3. He will need BiPAP support to prevent CO2 narcosis recurrence. His CO2 is quite high, in the 90s on last ABGs. 4. I discussed this with the patient's mother at bedside. 5. All cultures remain negative. 6. Monitor closely and obtain labs. Job#: [id number]
[2018-03-15] MEDS: MONTELUKAST SODIUM 10 MG TAB PO SCH (21:12)
[2018-03-15] MEDS: LORAZEPAM INJ 2 MG/ML VIAL IV PRN (21:15)
[2018-03-15] MEDS: SODIUM CHLORIDE FLUSH 10 ML SYR INJ PRN (21:16)
[2018-03-15] MEDS: DIVALPROEX SODIUM 250 MG TAB...DR PO SCH (21:16)
[2018-03-15] MEDS: ZOLPIDEM TARTRATE 10 MG TAB PO PRN (21:17)
[2018-03-16 01:00] VITALS: BP 118/78
[2018-03-16] MEDS: ALBUTEROL/IPRATROPIUM 3 ML NEB NEB SCH ×6 (03:15→23:00)
[2018-03-16] MEDS: ZIPRASIDONE 20 MG VIAL IM PRN ×2 (03:32→16:04)
[2018-03-16 04:00] VITALS: BP 118/78
[2018-03-16] MEDS: LORAZEPAM INJ 2 MG/ML VIAL IV PRN ×2 (04:28→20:12)
[2018-03-16 05:32] LABS: ANION GAP 11.1 mmol/L (8-16); BLOOD UREA NITROGEN 21 mg/dL (7-26); BUN/CREATININE RATIO 25 (6-25); CALCIUM 8.1 mg/dL (8.4-10.2); CARBON DIOXIDE 36 mmol/L (22-29); CHLORIDE 95 mmol/L (98-107); CREATININE, SERUM 0.83 mg/dL (0.72-1.25); EST GLOMERULAR FILTRATION RATE > 60 ML/MIN (60-); GLUCOSE 111 mg/dL (74-118); POTASSIUM 4.1 mmol/L (3.5-5.1); SODIUM 138 mmol/L (136-145)
[2018-03-16] MEDS: PIPER-TAZ 3.375 GM 50 ML IV SCH ×3 (06:32→22:45)
[2018-03-16] MEDS: DIVALPROEX SODIUM 250 MG TAB...DR PO SCH ×3 (06:32→20:54)
[2018-03-16] MEDS: ONDANSETRON HCL 4 MG ORAL DISINTEGRATING TAB SL SCH ×5 (06:32→23:08)
[2018-03-16] MEDS: METHYLPREDNISOLONE SOD SUCC 125 MG/2ML VIAL IV SCH (06:32)
[2018-03-16] MEDS: FUROSEMIDE INJ 10 MG/ML 4 ML VIAL IV SCH (07:50)
[2018-03-16] MEDS: PANTOPRAZOLE 40 MG 10ML VIAL IV SCH (07:50)
[2018-03-16 08:00] VITALS: BP 127/75
[2018-03-16 08:06] LABS: ABG HCO3 42 mmol/L (23-28); ABG PCO2 74 mmHg (41-51); ABG PH 7.36 (7.31-7.41); ABG PO2 78 mmHg (80-105)
[2018-03-16] MEDS: VANCOMYCIN 1GM/NS 250 ML 250 ML IV SCH ×2 (08:30→20:44)
[2018-03-16] MEDS: BUSPIRONE HCL 5 MG TAB PO SCH ×2 (09:23→16:08)
[2018-03-16] MEDS: LORATADINE 10 MG TAB PO SCH (09:23)
[2018-03-16] MEDS: [UNRECOGNIZED DRUG - OTHER] PO SCH (09:23)
[2018-03-16] MEDS: LATUDA 80 MG PO SCH (09:23)
[2018-03-16] MEDS: PROPRANOLOL HCL 40 MG TAB PO SCH ×2 (09:24→16:08)
[2018-03-16] MEDS: LISINOPRIL 10 MG TAB PO SCH (09:24)
--- NOTE | 2018-03-16 09:25 | Diagnostic Imaging Report ---
PROCEDURE: CHEST SINGLE (PORTABLE) COMPARISON: 03/14/2018. INDICATIONS: respiratory distress FINDINGS: Images are only now submitted for interpretation at 0925 hours on 03/16/2018 Lung volumes are low. Linear opacity in the right mid lung compatible with subsegmental atelectasis. No gross consolidation, pleural effusion, or pneumothorax. Cardiomediastinal contour is accentuated by AP technique and poor inspiratory effort. Right upper extremity PICC is unchanged in position. The tip terminates over the expected region of the low superior vena cava. CONCLUSION: Interval improvement in pulmonary edema. Stable right greater than left lung base subsegmental atelectasis. Dictated by: Taz Fox M.D. on 03/16/2018 at 9:32 Electronically approved by: Taz Fox M.D. on 03/16/2018 at 9:32
[2018-03-16 12:00] VITALS: BP 145/77
[2018-03-16] MEDS ORDERED: FUROSEMIDE INJ 10 MG/ML 2 ML VIAL IV NR (14:00)
[2018-03-16 16:00] VITALS: BP 130/74
[2018-03-16] MEDS: ENOXAPARIN SOD INJ 40 MG/0.4 ML SYR SC SCH (16:08)
--- NOTE | 2018-03-16 16:40 | Progress Note ---
DATE: PSYCHIATRIC PROGRESS NOTE SUBJECTIVE: Patient evaluated and events noted. INTERVAL HISTORY: Patient is currently lying on his bed. He is calm and cooperative. He is resting. He is not exhibiting any major signs of psychosis or agitation at this time. He is taking his medications and denies any side effects on those medications. He denies any hallucinations and/or any suicidal ideations. Collateral information was obtained from his mother, who was present in the room. She reported that patient is intermittently exhibiting behavioral problems, but he is not agitated. He is tolerating his medications well. DIAGNOSIS: Schizoaffective disorder, bipolar type. PLAN 1. Continue Latuda 80 mg p.o. daily. 2. Continue p.r.n. Ativan. 3. Continue p.r.n. Geodon. 4. Continue Depakote 250 mg p.o. 3 times a day. 5. Monitor for agitation and provide supportive therapy. Job#: [id number] EV
[2018-03-16] MEDS: MONTELUKAST SODIUM 10 MG TAB PO SCH (20:44)
[2018-03-16 21:11] VITALS: BP 112/72
[2018-03-16] MEDS: ZOLPIDEM TARTRATE 10 MG TAB PO PRN (21:44)
[2018-03-17 00:09] VITALS: BP 112/59
[2018-03-17] MEDS: ZIPRASIDONE 20 MG VIAL IM PRN ×4 (00:37→22:32)
[2018-03-17] MEDS: ALBUTEROL/IPRATROPIUM 3 ML NEB NEB SCH ×6 (03:30→23:30)
[2018-03-17 04:10] VITALS: BP 102/66
[2018-03-17] MEDS: ONDANSETRON HCL 4 MG ORAL DISINTEGRATING TAB SL SCH ×3 (05:21→18:00)
[2018-03-17] MEDS: PIPER-TAZ 3.375 GM 50 ML IV SCH ×3 (05:21→22:12)
[2018-03-17] MEDS: DIVALPROEX SODIUM 250 MG TAB...DR PO SCH ×3 (05:21→22:12)
[2018-03-17 06:04] LABS: ANION GAP 11.4 mmol/L (8-16); BLOOD UREA NITROGEN 24 mg/dL (7-26); BUN/CREATININE RATIO 28 (6-25); CALCIUM 7.8 mg/dL (8.4-10.2); CARBON DIOXIDE 35 mmol/L (22-29); CHLORIDE 98 mmol/L (98-107); CREATININE, SERUM 0.86 mg/dL (0.72-1.25); EST GLOMERULAR FILTRATION RATE > 60 ML/MIN (60-); GLUCOSE 108 mg/dL (74-118); POTASSIUM 3.4 mmol/L (3.5-5.1); SODIUM 141 mmol/L (136-145)
[2018-03-17] MEDS ORDERED: POTASSIUM CHLORIDE 20 MEQ TAB CR PO NR ×2 (07:15→14:00)
[2018-03-17] MEDS: VANCOMYCIN 1GM/NS 250 ML 250 ML IV SCH ×2 (07:46→20:12)
[2018-03-17 08:00] VITALS: BP 110/58
[2018-03-17] MEDS: LORATADINE 10 MG TAB PO SCH (08:09)
[2018-03-17] MEDS: PANTOPRAZOLE 40 MG 10ML VIAL IV SCH (08:09)
[2018-03-17] MEDS: [UNRECOGNIZED DRUG - OTHER] PO SCH (08:09)
[2018-03-17] MEDS: LISINOPRIL 10 MG TAB PO SCH (08:09)
[2018-03-17] MEDS: PROPRANOLOL HCL 40 MG TAB PO SCH ×2 (08:09→16:07)
[2018-03-17] MEDS: METHYLPREDNISOLONE SOD SUCC 40 MG/ML VIAL IV SCH (08:09)
[2018-03-17] MEDS: FUROSEMIDE INJ 10 MG/ML 4 ML VIAL IV SCH (08:09)
[2018-03-17] MEDS: LATUDA 80 MG PO SCH (08:09)
[2018-03-17] MEDS: BUSPIRONE HCL 5 MG TAB PO SCH ×2 (08:09→16:07)
[2018-03-17] MEDS ORDERED: METHYLPREDNISOLONE SOD SUCC 125 MG/2ML VIAL IV SCH (09:00)
[2018-03-17 12:00] VITALS: BP 99/61
[2018-03-17] MEDS ORDERED: FUROSEMIDE INJ 10 MG/ML 4 ML VIAL IV NR (15:00)
[2018-03-17] MEDS: ENOXAPARIN SOD INJ 40 MG/0.4 ML SYR SC SCH (16:08)
[2018-03-17 19:35] VITALS: BP 121/70
[2018-03-17] MEDS: MONTELUKAST SODIUM 10 MG TAB PO SCH (22:12)
[2018-03-17] MEDS: ZOLPIDEM TARTRATE 10 MG TAB PO PRN (22:13)
[2018-03-17] MEDS: LORAZEPAM INJ 2 MG/ML VIAL IV PRN (23:11)
[2018-03-18] VITALS (7 sets, daily range): BP systolic 95–119; BP diastolic 42–74
[2018-03-18] MEDS ORDERED: MEROPENEM 500 MG VIAL ONE (00:45)
[2018-03-18] MEDS ORDERED: MEROPENEM 500MG 500 MG in SODIUM CHLORIDE 0.9% 50ML 50 ML IV SCH ×2 (01:00→09:00)
[2018-03-18] MEDS: ALBUTEROL/IPRATROPIUM 3 ML NEB NEB SCH ×6 (03:00→23:45)
[2018-03-18] MEDS: LORAZEPAM INJ 2 MG/ML VIAL IV PRN (05:05)
[2018-03-18] MEDS: ONDANSETRON HCL 4 MG ORAL DISINTEGRATING TAB SL SCH ×4 (05:08→18:00)
[2018-03-18] MEDS: DIVALPROEX SODIUM 250 MG TAB...DR PO SCH ×3 (05:08→21:07)
[2018-03-18 05:21] LABS: ANION GAP 10.6 mmol/L (8-16); BLOOD UREA NITROGEN 26 mg/dL (7-26); BUN/CREATININE RATIO 31 (6-25); CARBON DIOXIDE 37 mmol/L (22-29); CHLORIDE 99 mmol/L (98-107); CREATININE, SERUM 0.85 mg/dL (0.72-1.25); EST GLOMERULAR FILTRATION RATE > 60 ML/MIN (60-); GLUCOSE 96 mg/dL (74-118); POTASSIUM 3.6 mmol/L (3.5-5.1); SODIUM 143 mmol/L (136-145)
[2018-03-18 07:57] LABS: ABG PH 7.31 (7.31-7.41)
[2018-03-18 07:58] LABS: ABG PCO2 78 mmHg (41-51)
[2018-03-18 07:59] LABS: ABG HCO3 39 mmol/L (23-28); ABG PO2 75 mmHg (80-105)
[2018-03-18] MEDS: MEROPENEM 500 MG VIAL IV SCH ×2 (10:38→19:04)
[2018-03-18] MEDS: FUROSEMIDE INJ 10 MG/ML 4 ML VIAL IV SCH (10:38)
[2018-03-18] MEDS: PANTOPRAZOLE 40 MG 10ML VIAL IV SCH (10:38)
[2018-03-18] MEDS: VANCOMYCIN 1GM/NS 250 ML 250 ML IV SCH (10:38)
[2018-03-18] MEDS: BUSPIRONE HCL 5 MG TAB PO SCH ×2 (10:39→19:04)
[2018-03-18] MEDS: LISINOPRIL 10 MG TAB PO SCH (10:39)
[2018-03-18] MEDS: LORATADINE 10 MG TAB PO SCH (10:39)
[2018-03-18] MEDS: PROPRANOLOL HCL 40 MG TAB PO SCH ×2 (10:39→17:00)
[2018-03-18] MEDS: METHYLPREDNISOLONE SOD SUCC 40 MG/ML VIAL IV SCH (10:39)
[2018-03-18] MEDS: LATUDA 80 MG PO SCH (10:43)
[2018-03-18] MEDS: [UNRECOGNIZED DRUG - OTHER] PO SCH (10:43)
--- NOTE | 2018-03-18 11:11 | Consultation ---
DATE OF CONSULTATION: March 18, 2018 ATTENDING PHYSICIAN: Dr. Jared Jung REASON FOR CONSULTATION: Sacral wound, sacral wound culture positive. Thank you Dr. Jung for asking me to see this patient. HISTORY: The patient is a 32-year-old man referred for sacral wound culture positive. The patient was admitted through the emergency department with acute dyspnea. He presented to emergency department on March 10, 2018 with low oxygenation, wheezing, sputum production, and sore throat. There was no fever, chills, or chest pain. He had been admitted to the [facility] in November 2017 with pneumonia, ARDS, and acute respiratory failure and required intubation for 5 weeks. During the admission, the patient developed large sacral ulcer, which required debridement and intravenous antibiotics. The patient was later discharged to [facility] where he continued treatment, and then later he was discharged home after completing antibiotics. At home, continued local wound care with improvement. Unfortunately, wound culture was collected by the wound care nurse a few days ago. In the emergency room, the patient was noted to have a temperature of 97.6 degrees Fahrenheit, pulse 93, respiratory rate 22, blood pressure 172/95, and oxygen saturation 91% on 4 liters of oxygen by nasal cannula. Initial laboratory studies showed blood leukocyte count of 16,720 with 89.9% neutrophils, BUN 13 and creatinine 0.84. The patient was subsequently intubated. Chest x-ray showed enlarged cardiac silhouette; and the repeat chest x-ray showed pulmonary edema. The patient was subsequently intubated. PAST MEDICAL HISTORY: Severe obesity, hypertension, asthma, respiratory failure, sacral decubitus ulcer, and paranoid schizophrenia. PAST SURGICAL HISTORY: None. ALLERGIES: NO KNOWN DRUG ALLERGIES. MEDICATIONS: The current antibiotic is meropenem 500 mg IV piggyback q.8h. and vancomycin 1 g IV piggyback q.12h. He received Zosyn earlier. IMMUNIZATIONS: The mother is unsure of pneumococcal vaccination status. FAMILY HISTORY: Noncontributory. SOCIAL HISTORY: He smoked 1 to 1-1/2 packs of cigarettes a day for 7 years, but has not smoked since he became ill in November 2017. REVIEW OF SYSTEMS: As per history of present illness. PHYSICAL EXAMINATION: GENERAL: Comfortable, on BiPAP. VITAL SIGNS: T-max 98.9, pulse 102, respiratory rate 21, blood pressure 119/42. Weight 451 pounds. HEENT: Normocephalic. There is no icterus or injection of conjunctivae. . BiPAP face mask in place. NECK: Short, but supple. No meningismus. LUNGS: Decreased breath sounds bilaterally. HEART: Normal S1 and S2. ABDOMEN: Normal bowel sounds in all quadrants. Soft and nontender. EXTREMITIES: There is no edema, clubbing, or cyanosis. SKIN: There is a deep sacral decubitus ulcer with granulation, which does not appear infected. BROADCAST DESIGNER: Awake and alert. Global weakness, but nonfocal. LABORATORY AND DIAGNOSTICS: March 15, 2018, WBC 10,160, hemoglobin 12.3, platelets 293,000, neutrophil 88, lymph 3, mono 8. March 18, 2018, BUN 26, creatinine 0.85. March 15, 2018, wound culture grew Proteus mirabilis ESBL positive, Klebsiella pneumoniae, and enterococcus species. March 10, 2018, blood culture, no growth. March 16, 2018, urine culture, no growth. IMPRESSION: 1. Sacral decubitus ulcer, does not appear infected. Bacterial isolate appears to represent colonization and/or contamination. 2. Asthma. 3. Resolving acute respiratory failure. 4. Pulmonary edema. PLAN: 1. The patient's mother is to verify pneumococcal vaccination status. 2. Continue local wound care. Thank you. Job#: [id number]
--- NOTE | 2018-03-18 12:26 | Progress Note ---
DATE: March 18, 2018 TIME OF SERVICE: 7 a.m. OVERNIGHT: Used BiPAP. REVIEW OF SYSTEMS: Unobtainable. VITAL SIGNS: Reviewed. PHYSICAL EXAMINATION GENERAL: A tired-appearing man resting in bed. HEENT: Anicteric. He has BiPAP mask in place. CARDIOVASCULAR: Normal S1, S2. LUNGS: Reduced breaths sounds throughout. ABDOMEN: Soft, nontender. EXTREMITIES: Trace edema. MUSCULOSKELETAL: Sacral wound with wound VAC in place. SKIN: Dry. PSYCHIATRIC: Flat affect. LABS: Reviewed. MEDICATIONS: Reviewed. ASSESSMENT: A 32-year-old man. 1. Acute respiratory failure. 2. Carbon dioxide narcosis. 3. Carbon dioxide retention. 4. Supermorbid obesity. 5. Seborrheic dermatitis. 6. Pulmonary edema. 7. Pericardial effusion. 8. Cigarette use. 9. Psychosis. 10. Klebsiella pneumoniae, Enterococcus faecalis, extended spectrum beta lactamase Proteus mirabilis infection of the sacral wound. PLAN 1. Follow up infectious disease recommendations. 2. Continue local wound care. 3. Continue antibiotics at this time. 4. Continue BiPAP support. 5. Follow up with case management regarding BiPAP setup at home. 6. Physical therapy. 7. Renal function remains stable. 8. Defer management of infected sacral wound to infectious disease in terms of antibiotics. Job#: [id number]
--- NOTE | 2018-03-18 12:35 | Progress Note ---
DATE: March 17, 2018 TIME: 06:00 a.m. SUBJECTIVE: Overnight, patient has CO2 retention. REVIEW OF SYSTEMS: Unreliable. PHYSICAL EXAMINATION VITAL SIGNS: Reviewed. GENERAL: A tired-appearing man, resting in bed. HEENT: Anicteric. CARDIOVASCULAR: Normal S1, S2. LUNGS: Reduced breaths sounds throughout. ABDOMEN: Soft, nontender. EXTREMITIES: No calf tenderness. MUSCULOSKELETAL: He has sacral ulcer. SKIN: Dry. PSYCHIATRIC: Flat affect. LABORATORY DATA: Reviewed. MEDICATIONS: Reviewed. ASSESSMENT: This is a 32-year-old man with; 1. Acute respiratory failure. 2. CO2 retention. 3. CO2 narcosis. 4. Likely sleep apnea. 5. Pulmonary edema. 6. Super-morbid obesity. 7. Seborrheic dermatitis. 8. Pericardial effusion. 9. History of cigarette use. 10. Psychosis. 11. Sacral ulcers. 12. Streptococcus infection of the sacral wound. PLAN 1. Continue antibiotics. 2. Followup for culture. 3. Continue BiPAP support. 4. CO2 improving with BiPAP use if patient uses it. 5. Physical therapy consultation. 6. Continue hospitalization. Job#: [id number] NUVIA
--- NOTE | 2018-03-18 12:38 | Progress Note ---
DATE: March 16, 2018 TIME: 07:00 a.m. SUBJECTIVE: Overnight, refused BiPAP at some point. REVIEW OF SYSTEMS: Unreliable. PHYSICAL EXAMINATION VITAL SIGNS: Reviewed. GENERAL APPEARANCE: Tired-appearing man, resting in the bed. HEENT: Anicteric. CARDIOVASCULAR: Normal S1 and S2. LUNGS: He has decreased breath sounds throughout. ABDOMEN: Soft, nontender, nondistended. EXTREMITIES: No edema. SKIN: Dry. PSYCHIATRIC: Flat affect. MUSCULOSKELETAL: Sacral ulcers. LABORATORY DATA: Reviewed. MEDICATIONS: Reviewed. ASSESSMENT: A 32-year-old male with; 1. Acute respiratory failure. 1. CO2 narcosis. 2. CO2 retention. 3. Likely sleep apnea. 4. Super morbid obesity. 5. Seborrheic dermatitis. 6. Pulmonary edema. 7. Pericardial effusion. 8. Cigarette use. 9. Acute psychosis. PLAN 1. Obtain ABG. 2. Continue oxygen support. 3. Encourage BiPAP use. 4. Continue antibiotics. 5. I have discussed case with mother at bedside. 6. Continue steroids. Job#: [id number] PKU
[2018-03-18] MEDS ORDERED: POTASSIUM CHLORIDE 20 MEQ TAB CR PO PRN (13:30)
[2018-03-18] MEDS ORDERED: POTASSIUM CHLORIDE 20 MEQ TAB CR PO NR (13:45)
[2018-03-18] MEDS: ZIPRASIDONE 20 MG VIAL IM PRN (13:50)
[2018-03-18] MEDS: MONTELUKAST SODIUM 10 MG TAB PO SCH (20:45)
[2018-03-19] VITALS (9 sets, daily range): BP systolic 113–134; BP diastolic 52–72
[2018-03-19] MEDS ORDERED: ACETAMINOPHEN 325 MG TAB PO PRN (03:00)
[2018-03-19] MEDS: ALBUTEROL/IPRATROPIUM 3 ML NEB NEB SCH ×6 (03:00→23:00)
[2018-03-19] MEDS ORDERED: DIPHENHYDRAMINE HCL 25 MG CAP PO PRN (03:00)
[2018-03-19] MEDS: ONDANSETRON HCL 4 MG ORAL DISINTEGRATING TAB SL SCH ×4 (05:37→17:10)
[2018-03-19] MEDS: DIVALPROEX SODIUM 250 MG TAB...DR PO SCH ×3 (05:37→21:26)
[2018-03-19 05:50] LABS: ANION GAP 8.3 mmol/L (8-16); BLOOD UREA NITROGEN 22 mg/dL (7-26); BUN/CREATININE RATIO 25 (6-25); CALCIUM 8.2 mg/dL (8.4-10.2); CARBON DIOXIDE 38 mmol/L (22-29); CHLORIDE 99 mmol/L (98-107); CREATININE, SERUM 0.87 mg/dL (0.72-1.25); EST GLOMERULAR FILTRATION RATE > 60 ML/MIN (60-); GLUCOSE 100 mg/dL (74-118); POTASSIUM 4.3 mmol/L (3.5-5.1); SODIUM 141 mmol/L (136-145)
[2018-03-19] MEDS: FUROSEMIDE INJ 10 MG/ML 4 ML VIAL IV SCH (08:53)
[2018-03-19] MEDS: PROPRANOLOL HCL 40 MG TAB PO SCH ×2 (08:53→17:09)
[2018-03-19] MEDS: LORATADINE 10 MG TAB PO SCH (08:53)
[2018-03-19] MEDS: BUSPIRONE HCL 5 MG TAB PO SCH ×2 (08:53→17:03)
[2018-03-19] MEDS: MEROPENEM 500 MG VIAL IV SCH ×2 (08:53)
[2018-03-19] MEDS: LATUDA 80 MG PO SCH (08:53)
[2018-03-19] MEDS: [UNRECOGNIZED DRUG - OTHER] PO SCH (08:53)
[2018-03-19] MEDS: PANTOPRAZOLE 40 MG 10ML VIAL IV SCH (08:53)
[2018-03-19] MEDS: METHYLPREDNISOLONE SOD SUCC 40 MG/ML VIAL IV SCH (08:53)
[2018-03-19] MEDS: LISINOPRIL 10 MG TAB PO SCH (08:54)
[2018-03-19 08:58] LABS: BASOPHILS % 0.1 % (0.0-1.0); EOSINOPHILS # (AUTO) 0.3 (0.0-0.4); HEMATOCRIT 38.5 % (38.2-49.6); LYMPHOCYTES # (AUTO) 2.1 (1.0-3.2); LYMPHOCYTES % 18.9 % (18.0-39.1); MEAN CORPUSCULAR HEMOGLOBIN 24.7 pg (28-32); MEAN CORPUSCULAR HGB CONC 28.6 g/dL (31-35); MEAN CORPUSCULAR VOLUME 86.5 fL (81-99); MONOCYTES # (AUTO) 1.4 (0.2-0.8); NEUTROPHILS % 64.6 % (38.7-80.0); PLATELET COUNT 188 x10e3/uL (140-360); RED BLOOD COUNT 4.45 x10e6/uL (4.3-5.7); RED CELL DISTRIBUTION WIDTH 16.4 % (11.7-14.4)
--- NOTE | 2018-03-19 11:29 | Progress Note ---
DATE: SUBJECTIVE: This is regarding the lung consultation. Patient is a 32-year-old male who I saw him at the beginning when he required intubation and ventilation due to severe shortness of breath. The patient improved, was extubated. Now, he is only on BiPAP whenever he sleeps either at night or he takes a nap settings of 16/10, respiratory rate 12, FiO2 of 40. He is very alert, he is cooperative. OBJECTIVE: VITAL SIGNS: More or less stable. HEENT: There is ptosis of the right eye. NECK: Short and thick. LUNGS: Crackles in both bases. HEART: No murmurs. ABDOMEN: Prominent. EXTREMITIES: No pedal edema. Patient has also sacral wound. IMPRESSION: 1. Treated acute hypoxemic respiratory failure. 2. Treated bilateral pneumonia. 3. Ptosis of the right eye. 4. Hypertension. 5. Morbid obesity. 6. Paranoid schizophrenia. 7. History of smoking. 8. He has also sacral wound. RECOMMENDATION: To continue with the current medication, with the BiPAP when he sleeps, and the patient if he is being discharged, he needs to have setup of BiPAP at home. Besides that, he may need off and on nebulizations. He is on different antibiotics for the sacral wound and he is on different medication also for his paranoid schizophrenia. I do not have additional recommendations. Job#: [id number]
[2018-03-19] MEDS: MONTELUKAST SODIUM 10 MG TAB PO SCH (21:26)
[2018-03-19] MEDS: ENOXAPARIN SOD INJ 40 MG/0.4 ML SYR SC SCH (21:26)
[2018-03-19] MEDS: ZOLPIDEM TARTRATE 10 MG TAB PO PRN ×2 (21:27)
[2018-03-19] MEDS: ZIPRASIDONE 20 MG VIAL IM PRN (22:31)
[2018-03-20] MEDS: ALBUTEROL/IPRATROPIUM 3 ML NEB NEB SCH ×6 (02:00→23:00)
[2018-03-20 04:22] VITALS: BP 102/51
[2018-03-20] MEDS: ONDANSETRON HCL 4 MG ORAL DISINTEGRATING TAB SL SCH ×4 (05:58→16:35)
[2018-03-20] MEDS: DIVALPROEX SODIUM 250 MG TAB...DR PO SCH ×3 (05:58→21:41)
[2018-03-20] MEDS ORDERED: ARTIFICIAL TEARS (OPTH) 15 ML BTL OU PRN (07:45)
[2018-03-20] MEDS: LISINOPRIL 10 MG TAB PO SCH (09:20)
[2018-03-20] MEDS: PROPRANOLOL HCL 40 MG TAB PO SCH ×2 (09:20→16:35)
[2018-03-20] MEDS: ZIPRASIDONE 20 MG VIAL IM PRN ×2 (09:35→22:54)
[2018-03-20] MEDS: LORATADINE 10 MG TAB PO SCH (10:03)
[2018-03-20] MEDS: BUSPIRONE HCL 5 MG TAB PO SCH ×2 (10:03→16:29)
[2018-03-20] MEDS: METHYLPREDNISOLONE SOD SUCC 40 MG/ML VIAL IV SCH (10:03)
[2018-03-20] MEDS: PANTOPRAZOLE 40 MG 10ML VIAL IV SCH (10:03)
[2018-03-20] MEDS: LATUDA 80 MG PO SCH (10:03)
[2018-03-20] MEDS: [UNRECOGNIZED DRUG - OTHER] PO SCH (10:03)
[2018-03-20 10:07] VITALS: BP 136/87
--- NOTE | 2018-03-20 12:11 | Progress Note ---
DATE: March 20, [address] Genao. The patient is a 32-year-old male who seems to be stable. He is off and on BiPAP especially at night and when he sleeps. Currently, he is on 7 L of oxygen nasal cannula. PHYSICAL EXAMINATION VITALS: Blood pressure is 136/87, oxygen saturation 97, and he is afebrile. GENERAL: The patient is interacting. Looks calm. HEENT: Atraumatic. NECK: Thick and short. LUNGS: Some crackles. HEART: No murmurs. ABDOMEN: Prominent. EXTREMITIES: Minimal pedal edema. The patient had a CBC yesterday, which was unremarkable. CO2 of 38 was also unremarkable. IMPRESSION 1. Treated acute respiratory failure. 2. Bilateral pneumonia. 3. Congestive heart failure. 4. Morbid obesity. 5. History of smoking. 6. Obstructive sleep apnea. RECOMMENDATIONS: Continue with the same level of oxygen. BiPAP when needed. The patient is on nebulization of albuterol and Atrovent q.4 h. He is on Solu-Medrol IV. He has been given Protonix 40 mg daily on a p.r.n. basis. Medication for sedation if he is agitated. Job#: [id number] JOSE
[2018-03-20 12:59] VITALS: BP 143/86
[2018-03-20 16:35] VITALS: BP 132/83
[2018-03-20] MEDS: ENOXAPARIN SOD INJ 40 MG/0.4 ML SYR SC SCH (16:35)
[2018-03-20 19:18] VITALS: BP 102/64
[2018-03-20 20:00] VITALS: BP 102/64
[2018-03-20] MEDS: MONTELUKAST SODIUM 10 MG TAB PO SCH (21:41)
[2018-03-21] MEDS: ZOLPIDEM TARTRATE 10 MG TAB PO PRN (00:10)
[2018-03-21 00:12] VITALS: BP 125/79
[2018-03-21] MEDS: ALBUTEROL/IPRATROPIUM 3 ML NEB NEB SCH ×6 (02:00→23:24)
[2018-03-21 05:03] VITALS: BP 119/72
[2018-03-21] MEDS: ZIPRASIDONE 20 MG VIAL IM PRN (05:26)
[2018-03-21] MEDS: DIVALPROEX SODIUM 250 MG TAB...DR PO SCH ×3 (05:26→21:23)
[2018-03-21 11:29] VITALS: BP 144/86
[2018-03-21] MEDS: PANTOPRAZOLE 40 MG 10ML VIAL IV SCH (13:10)
[2018-03-21] MEDS: BUSPIRONE HCL 5 MG TAB PO SCH ×2 (13:10→18:04)
[2018-03-21] MEDS: LORATADINE 10 MG TAB PO SCH (13:11)
[2018-03-21] MEDS: LATUDA 80 MG PO SCH (13:13)
[2018-03-21] MEDS: [UNRECOGNIZED DRUG - OTHER] PO SCH (13:13)
[2018-03-21] MEDS: PROPRANOLOL HCL 40 MG TAB PO SCH ×2 (13:43→18:20)
[2018-03-21] MEDS: SODIUM CHLORIDE FLUSH 10 ML SYR INJ PRN (13:43)
[2018-03-21] MEDS: LISINOPRIL 10 MG TAB PO SCH (13:43)
[2018-03-21 15:43] VITALS: BP 127/88
[2018-03-21 17:58] VITALS: BP 121/78
[2018-03-21] MEDS: ENOXAPARIN SOD INJ 40 MG/0.4 ML SYR SC SCH (18:05)
[2018-03-21] MEDS: MONTELUKAST SODIUM 10 MG TAB PO SCH (20:01)
--- NOTE | 2018-03-21 20:51 | Progress Note ---
DATE: March 19, 2018 TIME: 8:00 a.m. OVERNIGHT: No events. REVIEW OF SYSTEMS: Denies any chest pain or dizziness. Denies any vision changes, leg pain, back pain, headache. PHYSICAL EXAMINATION: VITAL SIGNS: Reviewed. GENERAL APPEARANCE: Tired-appearing man resting in bed. HEENT: Anicteric. CARDIOVASCULAR: Normal S1 and S2. LUNGS: Reduced breath sounds. ABDOMEN: Soft, nontender. EXTREMITIES: Trace edema. MUSCULOSKELETAL: He has sacral wound VAC in place. SKIN: Dry. PSYCHIATRIC: Flat affect. LABS: Reviewed. MEDICATIONS: Reviewed. ASSESSMENT: This is a 32-year-old man. 1. Acute respiratory failure. 2. Carbon dioxide narcosis. 3. Carbon dioxide retention. 4. Super morbid obesity. 5. Seborrheic dermatitis. 6. Pulmonary edema. 7. Pericardial effusion. 8. Cigarette use. 9. Psychosis. 10. Klebsiella pneumoniae, Enterococcus faecalis, and extended-spectrum beta-lactamase Proteus infection of sacral wound. PLAN: 1. Continue antimicrobial per infectious disease. 2. Continue BiPAP. 3. Continue physical therapy. 4. Discharge planning. 5. Check CBC. The pCO2 yesterday was 78. Job#: [id number]
--- NOTE | 2018-03-21 20:51 | Progress Note ---
DATE: March 20, 2018 TIME: 7:00 a.m. OVERNIGHT: No events. Patient used BiPAP. REVIEW OF SYSTEMS: Denies any dizziness, chest pain. Denies any fever, chills, sweats, nausea, vomiting, diarrhea. PHYSICAL EXAMINATION: VITAL SIGNS: Reviewed. GENERAL APPEARANCE: Tired-appearing man resting in bed. HEENT: Anicteric. CARDIOVASCULAR: Normal S1 and S2. LUNGS: Reduced breath sounds throughout. ABDOMEN: Soft. EXTREMITIES: No edema. Sacral, he has wound VAC in place. SKIN: Dry. PSYCHIATRIC: Flat affect. NEUROLOGICAL: Awake. LABS: Reviewed. MEDICATIONS: Reviewed. ASSESSMENT: A 32-year-old man. 1. Acute respiratory failure. 2. Likely sleep apnea. 3. Carbon dioxide retention. 4. Super morbid obesity. 5. Seborrheic dermatitis. 6. Pulmonary edema. 7. Pericardial effusion. 8. Cigarette use. 9. Psychosis. 10. Klebsiella pneumoniae, Enterococcus faecalis, and extended-spectrum beta-lactamase Proteus infections in the wound. PLAN: 1. Antibiotics per infectious disease. 2. BiPAP support. 3. Discharge planning. 4. Continue attempts to obtain BiPAP. Job#: [id number]
[2018-03-21 20:58] VITALS: BP 138/93
--- NOTE | 2018-03-21 21:06 | Progress Note ---
DATE: March 21, 2018 TIME: 8:00 a.m. OVERNIGHT: No events. REVIEW OF SYSTEMS: Denies any dizziness, chest pain. Denies any fever, chills, sweats, nausea, vomiting, diarrhea. PHYSICAL EXAMINATION VITAL SIGNS: Reviewed. GENERAL APPEARANCE: Tired-appearing man resting in bed. HEENT: Anicteric. He has BiPAP mask in place. CARDIOVASCULAR: Normal S1/S2. LUNGS: He has reduced breath sounds throughout. ABDOMEN: Soft, nontender. MUSCULOSKELETAL: He has a wound VAC. EXTREMITIES: Trace edema. SKIN: Dry. PSYCHIATRIC: Flat affect. NEUROLOGICAL: Awake. Moves all extremities LABS: Reviewed. MEDICATIONS: Reviewed. ASSESSMENT: A 32-year-old man. 1. Acute respiratory failure. 2. Likely sleep apnea. 3. Carbon dioxide retention. 4. Carbon dioxide narcosis. 5. Super morbid obesity. 6. Seborrheic dermatitis. 7. Pulmonary edema. 8. Pericardial effusion. 9. Cigarette use. 10. Acute psychosis. 11. Klebsiella pneumoniae, Enterococcus faecalis, extended-spectrum beta-lactamase Proteus mirabilis infections in the sacral wound. PLAN 1. Antibiotics per infectious disease. 2. BiPAP support. 3. Wound VAC. 4. Local wound care. 5. Discharge once patient has BiPAP in place. He can obtain the special bed, wound VAC and other needs thereafter. In the meantime, he can do wet-to-dry dressing changes. Job#: [id number] CQ
[2018-03-22] VITALS: BP 140/80
[2018-03-22 04:32] VITALS: BP 136/82
[2018-03-22] MEDS: DIVALPROEX SODIUM 250 MG TAB...DR PO SCH ×2 (05:19→15:19)
--- NOTE | 2018-03-22 06:53 | Progress Note ---
DATE: March 22, 2018 TIME: 6:40 a.m. OVERNIGHT: No events. REVIEW OF SYSTEMS: Unobtainable. PHYSICAL EXAMINATION VITAL SIGNS: Reviewed. GENERAL: A tired-appearing man resting in bed. HEENT: He has a BiPAP mask in place. CARDIOVASCULAR: Normal S1 and S2. LUNGS: He has moderate breath sounds. ABDOMEN: Soft and nontender. MUSCULOSKELETAL: He has a wound VAC in place in the sacral region. EXTREMITIES: No edema. SKIN: Dry. PSYCHIATRIC: Unable to assess. NEUROLOGICAL: He moves all extremities. LABS: Reviewed. MEDICATIONS: Reviewed. ASSESSMENT: A 32-year-old man with: 1. Acute respiratory failure. 2. Likely sleep apnea. 3. Carbon dioxide retention and narcosis. 4. Super morbid obesity. 5. Seborrheic dermatitis. 6. Pulmonary edema. 7. Pericardial effusion. 8. Cigarette use. 9. Acute psychosis. 10. Klebsiella pneumoniae, Enterococcus faecalis, extended spectrum beta-lactamase Proteus infection in sacral wound. PLAN 1. Antibiotics per infectious disease. 2. BiPAP support. 3. Continue wound VAC. 4. Continue local wound care. 5. Discharge planning once BiPAP is improved and obtained. Job#: [id number] JOSE
[2018-03-22] MEDS: ALBUTEROL/IPRATROPIUM 3 ML NEB NEB SCH ×3 (07:00→15:00)
[2018-03-22 07:07] VITALS: BP 134/84
[2018-03-22] MEDS: PANTOPRAZOLE 40 MG 10ML VIAL IV SCH (09:00)
[2018-03-22] MEDS ORDERED: FUROSEMIDE INJ 10 MG/ML 4 ML VIAL IV SCH (09:00)
[2018-03-22] MEDS: LISINOPRIL 10 MG TAB PO SCH (09:01)
[2018-03-22] MEDS: PROPRANOLOL HCL 40 MG TAB PO SCH ×2 (09:01→16:36)
[2018-03-22] MEDS: LORATADINE 10 MG TAB PO SCH (09:01)
[2018-03-22] MEDS: BUSPIRONE HCL 5 MG TAB PO SCH ×2 (09:01→16:36)
[2018-03-22] MEDS: LATUDA 80 MG PO SCH (09:05)
[2018-03-22] MEDS: [UNRECOGNIZED DRUG - OTHER] PO SCH (09:05)
[2018-03-22] MEDS: SODIUM CHLORIDE FLUSH 10 ML SYR INJ PRN (10:33)
[2018-03-22] MEDS: ZIPRASIDONE 20 MG VIAL IM PRN (10:33)
[2018-03-22 11:35] VITALS: BP 135/79
[2018-03-22 13:22] LABS: ANION GAP 13.3 mmol/L (8-16); BLOOD UREA NITROGEN 14 mg/dL (7-26); BUN/CREATININE RATIO 17 (6-25); CALCIUM 9.6 mg/dL (8.4-10.2); CARBON DIOXIDE 38 mmol/L (22-29); CHLORIDE 93 mmol/L (98-107); CREATININE, SERUM 0.83 mg/dL (0.72-1.25); EST GLOMERULAR FILTRATION RATE > 60 ML/MIN (60-); GLUCOSE 116 mg/dL (74-118); POTASSIUM 4.3 mmol/L (3.5-5.1); SODIUM 140 mmol/L (136-145)
--- NOTE | 2018-03-22 16:05 | Progress Note ---
DATE: PSYCHIATRIC PROGRESS NOTE SUBJECTIVE: Patient evaluated and events noted. INTERVAL HISTORY: Patient is currently lying on his bed. He is alert, awake and oriented to situation. He is feeling better. He denies feeling depressed or anxious. He denies any hallucinations and/or any suicidal ideation at this time. He is taking his medications. He denies any side effects from his medications. DIAGNOSIS: Schizoaffective disorder, bipolar type. PLAN 1. Continue Latuda. 2. Continue p.r.n. Ativan. 3. Continue p.r.n. Geodon IM. 4. Continue Depakote. 5. Monitor for agitation and provide supportive therapy. Job#: [id number]
[2018-03-22 16:32] VITALS: BP 123/73
[2018-03-22] MEDS: ENOXAPARIN SOD INJ 40 MG/0.4 ML SYR SC SCH (16:36)
--- NOTE | 2018-03-29 18:24 | Discharge Summary ---
PRINCIPAL DIAGNOSES 1. Acute respiratory failure. 2. Likely sleep apnea. 3. Carbon dioxide retention. 4. Carbon dioxide narcosis. 5. Supermorbid obesity. 6. Seborrheic dermatitis. 7. Pulmonary edema. 8. Pericardial effusion. 9. Cigarette use. 10. Acute psychosis. 11. Klebsiella pneumoniae infection in sacral wound. 12. Enterococcus faecalis infection in sacral wound. 13. Extended-spectrum beta-lactamase proteus infection in sacral wound. 14. Sacral wound requiring Wound VAC. SECONDARY DIAGNOSIS: Obesity. CHIEF COMPLAINT: Confusion and shortness of breath. HISTORY OF PRESENT ILLNESS: This is a 32-year-old man with confusion. Please refer to the H\T\P for further details. HOSPITAL COURSE: Patient was found to have acute respiratory failure. He had what appeared to be sleep apnea. He had CO2 retention and CO2 narcosis. It improved with BiPAP use. Patient is sometimes noncompliant. He had supermorbid obesity, needs to lose weight outpatient. He had seborrheic dermatitis and also had pulmonary edema and pericardial effusion. These were treated medically. He had a history of cigarette use, and he had acute psychosis treated with medication regimen and Psychiatry assisted in management. Patient was noncompliant many times. Mother was closely involved in care and stayed in the room most of the time. Patient does require BiPAP for management of CO2 retention at home. However, patient and mother decided to leave although it was advised that they required BiPAP. They left against medical advice. Wound VAC and other DME support were by Case Management, but the patient will need to follow up closely with primary care doctor and with a service engineer for improvement in symptoms and outcome. FOLLOWUP 1. With primary care doctor in 1 week. 2. Material Assistant in 1 week. 3. Obtain a BiPAP mask ARIELLE. 4. I have multiple attempts to contact the patient's mother by telephone calling , but she has not answered nor returned the calls. However, I did speak with her prior to leaving and I encouraged her to continue to attempt obtaining BiPAP through her insurance for proper management at home. ADRI BURGESS MD Job#: [id number] EV
== END 2018-03-22 18:00 | disposition home or self-care (01) | DRG 208 ==
LOC: FSED 19:14 → ERHOLD 22:16 → OBSVTOIN 22:16 → IMCU 23:50 → ICU 03-11 16:31 → IMCU 03-14 17:35
PROVIDERS: ADMIT Internal Medicine; ATTEND Internal Medicine
PROC: 5A1945Z Respiratory Ventilation, 24-96 Consecutive Hours (ICD-10-PCS; principal; 2018-03-11)
PROC: 0BH17EZ Insertion of Endotracheal Airway into Trachea, Via Natural or Artificial Opening (ICD-10-PCS; principal; 2018-03-11)
PROC: 02HV33Z Insertion of Infusion Device into Superior Vena Cava, Percutaneous Approach (ICD-10-PCS; 2018-03-12)
DX: J96.21 Acute and chronic respiratory failure with hypoxia (principal); L89.153 Pressure ulcer of sacral region, stage 3; J18.9 Pneumonia, unspecified organism; I26.09 Other pulmonary embolism with acute cor pulmonale; E87.2 Acidosis; E66.2 Morbid (severe) obesity with alveolar hypoventilation; Z68.44 Body mass index [BMI] 60.0-69.9, adult; I50.30 Unspecified diastolic (congestive) heart failure; J96.22 Acute and chronic respiratory failure with hypercapnia; J20.9 Acute bronchitis, unspecified; Z87.891 Personal history of nicotine dependence; Z99.81 Dependence on supplemental oxygen; Z83.3 Family history of diabetes mellitus; L21.8 Other seborrheic dermatitis; F25.0 Schizoaffective disorder, bipolar type; R11.10 Vomiting, unspecified; R45.1 Restlessness and agitation; B96.1 Klebsiella pneumoniae [K. pneumoniae] as the cause of diseases classified elsewhere; B95.2 Enterococcus as the cause of diseases classified elsewhere; B96.4 Proteus (mirabilis) (morganii) as the cause of diseases classified elsewhere; H02.401 Unspecified ptosis of right eyelid; I11.0 Hypertensive heart disease with heart failure
CPT/HCPCS: 36415; 36569; 36600; 71045; 74018; 80048; 80053; 80061; 80076; 80202; 82550; 82553; 82805; 83036; 83605; 83735; 83880; 84443; 84484; 85025; 87040; 87071; 87075; 87086; 87186; 87205; 93306; 94002; 94640; 94660; 97139; 97606; 99284; J0330; J1650; J1940; J2060; J2185; J2250; J2405; J2543; J2550; J2920; J2930; J3370; J3480; J3486; J7030; J7050